=== PATIENT | male | born 1950 ===

== ENCOUNTER 2017-11-04 07:00 | Inpatient (IN) | payer MEDICARE ==
[2017-11-04] MEDS ORDERED: Phenylephrine 10 mg/ml Inj ONE ×3 (10:37→11:30)
[2017-11-04] MEDS ORDERED: Midazolam 2 MG/2 ML VIAL ONE (10:37)
[2017-11-04] MEDS ORDERED: Propofol 10 mg/ml Inj (20 ML) ONE (10:38)
[2017-11-04] MEDS ORDERED: Lactated Ringer's 1,000 ML IV ONE (10:40)
[2017-11-04] MEDS ORDERED: Succinylcholine Chloride 20 mg/ml Syr (5 ml) IV ONE (10:40)
[2017-11-04] MEDS ORDERED: cefTRIAXone IV 1 gm in Dextros 50 ML IVPB ONE (10:56)
[2017-11-04] MEDS: Gentamicin 80 mg in 0.9% NS 80 MG/100 ML BAG IVPB ONE ×2 (10:57→11:00)
--- NOTE | 2017-11-04 11:56 | PCM.SURG1 ---
Surgeon's Initial Post Op Note - Surgeon's Notes Surgeon: evgeny pizano Neon Molder: none Type of Anesthesia: General LMA Pre-Operative Diagnosis: bph Operative Findings: bph, retention Post-Operative Diagnosis: same Operation Performed: cysto, bilat ureteral stent removal. TURP Specimen/Specimens Removed: urine. prostate Estimated Blood Loss: EBL {In ML}: 100 Blood Products Given: N/A Post-Op Condition: Good Date of Surgery/Procedure: 11/04/17 Time of Surgery/Procedure: 11:56
[2017-11-04] MEDS ORDERED: Oxycodone/Acetaminophen 5/325 mg Tab PO PRN (11:57)
[2017-11-04] MEDS ORDERED: Potassium Ch 20mEq in D5-1/2NS 1,000 ML IV SCH (12:00)
[2017-11-04] MEDS: HYDROmorphone 0.5 mg/0.5 ml ISec IVP PRN ×3 (12:22→15:40)
[2017-11-04] MEDS ORDERED: HYDROmorphone 0.5 mg/0.5 ml ISec ONE (15:44)
[2017-11-04] MEDS ORDERED: Sodium Chloride 0.9% 1,000 ML IV ONE ×2 (16:24→17:15)
[2017-11-04 16:42] LABS: BASO % 0.5 % (0.0-2.0); EOS % 0.4 % (0.0-4.0); HEMATOCRIT 35.6 % (35.0-51.0); LYMPH # 0.4 K/uL (1.0-4.3); LYMPH % 8.6 % (20.0-40.0); MEAN CELL VOLUME 80.8 fL (80.0-94.0); MEAN CORPUSCULAR HEMOGLOBIN 26.2 pg (27.0-31.0); MEAN CORPUSCULAR HGB CONC 32.5 g/dL (33.0-37.0); MEAN PLATELET VOLUME 8.5 fL (7.2-11.7); MONO % 0.6 % (0.0-10.0); PLATELET COUNT 275 K/uL (130-400); RED CELL DISTRIBUTION WIDTH 15.8 % (11.5-14.5); WHITE BLOOD COUNT 5.2 K/uL (4.8-10.8)
[2017-11-04 16:54] LABS: INR 1.1
[2017-11-04 17:07] LABS: ALB/GLOB RATIO 1.1 (1.0-2.1); BILIRUBIN,TOTAL 0.5 mg/dL (0.2-1.3); CALCIUM 8.4 mg/dl (8.6-10.4); MAGNESIUM 1.3 mg/dL (1.6-2.3); PHOSPHOROUS 3.2 mg/dL (2.5-4.5); POTASSIUM 3.7 mmol/L (3.6-5.2); TOTAL PROTEIN 6.9 g/dL (6.3-8.3)
[2017-11-04 17:15] LABS: VENOUS BLOOD GAS BASE EXCESS -2.4 mmol/L (0.0-2.0); VENOUS BLOOD GAS PCO2 42 mmHg (40-60); VENOUS BLOOD PH 7.35 (7.32-7.43)
--- NOTE | 2017-11-04 17:21 | PCM.SEPTIC ---
Addendum entered and electronically signed by Celi Cardenas DO 11/04/17 17:24 : Code Sepsis called on this patient at 16:02 for tachycardia and fever. Patient s/p OR and is AAOx3, in no acute distress and states that he feels well. The following labs were ordered: ABG shock panel, CBC, CMP, blood culture, urine culture, UA and procalcitonin. Original Note: <Celi Cardenas - Last Filed: 11/04/17 17:19> Sepsis Progress Note - Reassessment Type Date of Evaluation: 11/04/17 Time of Evaluation: 16:02 Reassessment Type: Non-invasive reassessment - Non Invasive Reassessment Were the most recent vital sign reviewed: Yes Vital Sign (Latest): Temp Pulse Resp BP Pulse Ox 97 F L 74 10 L 140/94 H 99 11/04/17 12:35 11/04/17 14:30 11/04/17 14:30 11/04/17 14:30 11/04/17 14:30 Cardiovascular: Yes: Chest Non Tender, Tachycardia. No: Edema, JVD, Murmur, Bradycardia, Irregularly Irregular Respiratory: Yes: Normal Breath Sounds. No: Decreased Breath Sounds, Accessory Muscle Use, Crackles, Rales, Rhonchi, Stridor, Wheezing, Respiratory Distress Capillary Refill: Normal (Less than 2 sec) Pulses: Normal Dorsalis Pedis Skin: Normal Color, Warm, Dry <Monica May V - Last Filed: 11/05/17 07:30> Sepsis Progress Note - Non Invasive Reassessment Vital Sign (Latest): Temp Pulse Resp BP Pulse Ox 100.1 F H 89 20 115/73 98 11/05/17 06:45 11/05/17 04:06 11/05/17 04:06 11/05/17 04:06 11/05/17 04:06 Attending/Attestation - Attestation I have personally seen and examined this patient.: Yes I have fully participated in the care of the patient.: Yes I have reviewed all pertinent clinical information, including history, physical exam and plan: Yes Notes (Text): Late computer entry. Brief Hospitalist Note. Responded to Code sepsis called in the PACU. Patient s/p TURP for BPH. In the OR , patient had received Rocephin and gentamicin. Code sepsis called for fever: 102 and HR: 120s. Patient's lactate has not yet been sent. Blood work ordered. Patient I believe had urine samples drawn in OR so will not recollect urine/has fontanez/running on CBI in the PACU. patient is awake, alert, no acute distress, except for mild chills. Denies CP, Denies cough, denies abdominal pain. Reports he was not feeling well before OR today but didn't think too much of it. Denies diarrhea, denies cough, denies rhinnorhea. Patient denies prior medical hx except for BPH, though is on anti-hypertensive meds and denies allergies to medications. Patient's blood pressure is relatively normal. Denies hx of heart failure, renal problems nor liver problems Per code sepsis protocol. patient has already received 2 antibiotics today in OR. Infectious Disease: Dr. Duarte is consult note: private attending for this patient is Dr. Hebert Orozco, who is also on medical consult. Patient ordered for LR 30mg/kg which is approximately 2 Liters(180ml). patient has fontanez since status post Turp for BPH.. Patient placed on telemetry. Discussed with Katherine Lazaro RN Crime Scene Photographer who will coordinate for telemetry bed. Repeat lactate ordered for 3 hours later. Blood work: CBC, CMP, Procalcitonin, 2 blood cultures, and Chest xray ordered.
--- NOTE | 2017-11-04 17:43 | CP.PCM.CON ---
History of Present Illness - History of Present Illness History of Present Illness: hx BPH HTN admitted from OR s/p TURP with chills and sepsis IV rx in progress Review of Systems - Review of Systems All systems: reviewed and no additional remarkable complaints except - Constitutional Constitutional: As Per HPI, Anorexia, Fever, Malaise - EENT Eyes: absent: As Per HPI, Blind Spots, Blurred Vision, Change in Vision, Decreased Night Vision, Diplopia, Discharge, Dry Eye, Exophthalmos, Floaters, Irritation, Itchy Eyes, Loss of Peripheral Vision, Pain, Photophobia, Requires Corrective Lenses, Sees Flashes, Spots in Vision, Tunnel Vision, Other Visual Disturbances, Loss of Vision, Other Ears: absent: As Per HPI, Decreased Hearing, Ear Discharge, Ear Pain, Tinnitus, Abnormal Hearing, Disequilibrium, Dizziness, Other Nose/Mouth/Throat: absent: As Per HPI, Epistaxis, Nasal Congestion, Nasal Discharge, Nasal Obstruction, Nasal Trauma, Nose Pain, Post Nasal Drip, Sinus Pain, Sinus Pressure, Bleeding Gums, Change in Voice, Dental Pain, Dry Mouth, Dysphagia, Halitosis, Hoarsness, Lip Swelling, Mouth Lesions, Mouth Pain, Odynophagia, Sore Throat, Throat Swelling, Tongue Swelling, Facial Pain, Neck Pain, Neck Mass, Other - Cardiovascular Cardiovascular: absent: As Per HPI, Acrocyanosis, Chest Pain, Chest Pain at Rest , Chest Pain with Activity, Claudication, Diaphoresis, Dyspnea, Dyspnea on Exertion, Edema, Irregular Heart Rhythm, Pain Radiating to Arm/Neck/Jaw, Leg Edema, Leg Ulcers, Lightheadedness, Orthopnea, Palpitations, Paroxysmal Nocturnal Dyspnea, Pedal Edema, Radiating Pain, Rapid Heart Rate, Slow Heart Rate, Syncope, Other - Respiratory Respiratory: absent: As Per HPI, Cough, Dyspnea, Hemoptysis, Dyspnea on Exertion , Wheezing, Snoring, Stridor, Pain on Inspiration, Chest Congestion, Excessive Mucous Production, Change in Mucous Color, Pain with Coughing, Other - Gastrointestinal Gastrointestinal: absent: As Per HPI, Abdominal Pain, Belching, Bloating, Change in Bowel Habits, Change in Stool Character, Coffee Ground Emesis, Constipation, Cramping, Diarrhea, Dyspepsia, Dysphagia, Early Satiety, Excessive Flatus, Fecal Incontinence, Heartburn, Hematemesis, Hematochezia, Loose Stools, Melena, Nausea, Odynophagia, Temesmus, Vomiting, Other - Genitourinary Genitourinary: As Per HPI - Musculoskeletal Musculoskeletal: absent: As Per HPI, Abnormal Gait, Arthralgias, Atrophy, Back Pain, Deformity, Joint Swelling, Limited Range of Motion, Loss of Height, Muscle Cramps, Muscle Weakness, Myalgias, Neck Pain, Numbness, Radiating Pain into Limb, Stiffness, Tingling, Other - Integumentary Integumentary: absent: As Per HPI, Acne, Alopecia, Bleeding Lesions, Change in Hair, Change in Nails, Change in Pigmentation, Changing Lesions, Dry Skin, Erythema, Furuncle, Hirsutism, Lesions, New Lesions, Non-Healing Lesions, Photosensitivity, Pruritus, Rash, Skin Pain, Skin Ulcer, Sores, Striae, Swelling , Unusual Bruising, Wounds, Jaundice, Other - Neurological Neurological: absent: As Per HPI, Abnormal Gait, Abnormal Hearing, Abnormal Movements, Abnormal Speech, Behavioral Changes, Burning Sensations, Confusion, Convulsions, Disequilibrium, Dizziness, Numbness, Focal Weakness, Frequent Falls , Headaches, Lack of Coordination, Loss of Vision, Memory Loss, Paresthesias, Radicular Pain, Restless Legs, Sensory Deficit, Syncope, Tingling, Tremor, Vertigo, Weakness, Other Visual Disturbances, Other - Psychiatric Psychiatric: absent: As Per HPI, Abnormal Sleep Pattern, Anhedonia, Anxiety, Auditory Hallucinations, Behavioral Changes, Change in Appetite, Change in Libido, Confusion, Depression, Difficulty Concentrating, Hallucinations, Homicidal Ideation, Hopelessness, Irritability, Memory Loss, Mood Swings, Panic Attacks, Paranoia, Suicidal Ideation, Visual Hallucinations, Tactile Hallucinations, Other - Endocrine Endocrine: absent: As Per HPI, Change in Body Appearance, Change in Libido, Cold Intolorance, Deepening of Voice, Excessive Sweating, Fatigue, Flushing, Heat Intolorance, Increase in Ring/Shoe/Hat Size, Palpitations, Polydipsia, Polyphagia, Polyuria, Other - Hematologic/Lymphatic Hematologic: absent: As Per HPI, Easy Bleeding, Easy Bruising, Lymphadenopathy, Other Past Patient History - Past Medical History & Family History Past Medical History?: Yes - Past Social History Smoking Status: Former Smoker - CARDIAC Hx Hypercholesterolemia: Yes Hx Hypertension: Yes - PULMONARY Hx Respiratory Disorders: No - NEUROLOGICAL Hx Neurological Disorder: No - HEENT Hx HEENT Problems: Yes Hx Cataracts: Yes - RENAL Hx Chronic Kidney Disease: No - ENDOCRINE/METABOLIC Hx Endocrine Disorders: No - HEMATOLOGICAL/ONCOLOGICAL Hx Blood Disorders: Yes Hx Anemia: Yes - INTEGUMENTARY Hx Dermatological Problems: No - MUSCULOSKELETAL/RHEUMATOLOGICAL Hx Musculoskeletal Disorders: Yes Hx Falls: Yes Hx Unsteady Gait: Yes - GASTROINTESTINAL Hx Gastrointestinal Disorders: Yes - GENITOURINARY/GYNECOLOGICAL Hx Genitourinary Disorders: Yes Hx Prostate Problems: Yes - PSYCHIATRIC Hx Psychophysiologic Disorder: Yes Hx Anxiety: Yes - SURGICAL HISTORY Hx Surgeries: Yes Hx Herniorrhaphy: Yes (Kedar inguinal hernias) - ANESTHESIA Hx Anesthesia: Yes Hx Anesthesia Reactions: No Hx Malignant Hyperthermia: No Has any member of the family had a problem w/ anesthesia?: No Meds Allergies/Adverse Reactions: Allergies Allergy/AdvReac Type Severity Reaction Status Date / Time No Known Allergies Allergy Verified 11/02/17 09:01 - Medications Medications: Current Medications Acetaminophen (Tylenol 325mg Tab) 650 mg PO Q6 PRN PRN Reason: Fever >100.4 F Potassium Chloride/Dextrose/Sod Cl (Potassium Chl 20 Meq In D5-1/2ns) 1,000 mls @ 100 mls/hr IV .Q10H PRO Lactated Ringer's (Lactated Ringer's) 1,000 mls @ 100 mls/hr IV .Q10H PRO Oxycodone/Acetaminophen (Percocet 5/325 Mg Tab) 1 tab PO Q4H PRN PRN Reason: Pain, moderate (4-7) Stop: 11/07/17 11:58 Physical Exam - Constitutional Appears: Toxic - Head Exam Head Exam: NORMOCEPHALIC - Eye Exam Eye Exam: absent: Scleral icterus - ENT Exam ENT Exam: Mucous Membranes Dry, Normal External Ear Exam - Neck Exam Neck exam: Negative for: Lymphadenopathy - Respiratory Exam Respiratory Exam: Clear to Auscultation Bilateral - Cardiovascular Exam Cardiovascular Exam: Tachycardia, REGULAR RHYTHM, +S1, +S2 - GI/Abdominal Exam GI & Abdominal Exam: Diminished Bowel Sounds - Rectal Exam Rectal Exam: Deferred - Exam Exam: absent: NORMAL INSPECTION - Extremities Exam Extremities exam: Negative for: pedal edema - Back Exam Back exam: absent: CVA tenderness (L), CVA tenderness (R) - Neurological Exam Neurological exam: Alert, CN II-XII Intact, Oriented x3, Reflexes Normal - Psychiatric Exam Psychiatric exam: Depressed - Skin Skin Exam: Dry Results - Vital Signs Recent Vital Signs: Last Vital Signs Temp 101.8 F H 11/04/17 15:45 Pulse 136 H 11/04/17 15:45 Resp 21 11/04/17 15:45 BP 154/91 H 11/04/17 15:45 Pulse Ox 99 11/04/17 15:45 - Labs Result Diagrams: 11/05/17 07:14 11/05/17 07:14 Labs: Laboratory Results - last 24 hr 11/04/17 11/04/17 11/04/17 16:35 16:39 16:39 WBC 5.2 RBC 4.40 Hgb 11.6 L Hct 35.6 MCV 80.8 MCH 26.2 L MCHC 32.5 L RDW 15.8 H Plt Count 275 MPV 8.5 Neut % (Auto) 89.9 H Lymph % (Auto) 8.6 L [place] % (Auto) 0.6 Eos % (Auto) 0.4 Baso % (Auto) 0.5 Neut # 4.6 Lymph # 0.4 L [place] # 0.0 Eos # 0.0 Baso # 0.0 PT 12.1 INR 1.1 APTT 28 pO2 VBG pH VBG pCO2 VBG HCO3 VBG Total CO2 VBG O2 Sat (Calc) VBG Base Excess VBG Potassium Glucose Lactate Sodium Potassium Chloride Carbon Dioxide Anion Gap BUN Creatinine Est GFR ( Amer) Est GFR (Non-Af Amer) Random Glucose Lactic Acid 2.4 H Calcium Phosphorus Magnesium Total Bilirubin AST ALT Alkaline Phosphatase Total Protein Albumin Globulin Albumin/Globulin Ratio Venous Blood Potassium 11/04/17 11/04/17 16:39 17:12 WBC RBC Hgb Hct MCV MCH MCHC RDW Plt Count MPV Neut % (Auto) Lymph % (Auto) [place] % (Auto) Eos % (Auto) Baso % (Auto) Neut # Lymph # [place] # Eos # Baso # PT INR APTT pO2 32 VBG pH 7.35 VBG pCO2 42 VBG HCO3 22.0 VBG Total CO2 24.5 VBG O2 Sat (Calc) 67.2 H VBG Base Excess -2.4 L VBG Potassium 4.8 Glucose 335 H Lactate 1.3 Sodium 137 134.0 Potassium 3.7 Chloride 103 107.0 Carbon Dioxide 25 Anion Gap 12 BUN 20 Creatinine 1.7 H Est GFR ( Amer) 49 Est GFR (Non-Af Amer) 40 Random Glucose 103 Lactic Acid Calcium 8.4 L Phosphorus 3.2 Magnesium 1.3 L Total Bilirubin 0.5 AST 25 ALT 44 Alkaline Phosphatase 98 Total Protein 6.9 Albumin 3.6 Globulin 3.3 Albumin/Globulin Ratio 1.1 Venous Blood Potassium 4.8 Assessment & Plan - Assessment and Plan (Free Text) Assessment: sepsis s/p TURP suspect gram neg cont IV rx follow up ICU eval
[2017-11-04] MEDS ORDERED: Cefepime IV 1 gm in Dextrose 1 GM/50 ML BAG IVPB STA (17:44)
[2017-11-04] MEDS ORDERED: Cefepime IV 2 gm in Dextrose 2 GM/100 ML BAG IVPB SCH (17:45)
--- NOTE | 2017-11-04 18:28 | RAD ---
HISTORY: Sepsis Patient COMPARISON: None available. TECHNIQUE: Chest, one view. FINDINGS: LUNGS: Hyperinflation may be seen in the setting of COPD.No focal consolidation. Please note that chest x-ray has limited sensitivity for the detection of pulmonary masses. PLEURA: No significant pleural effusion identified. No definite pneumothorax . CARDIOVASCULAR: Heart size appears within normal limits. Aortic ectasia. OSSEOUS STRUCTURES: Degenerative changes. VISUALIZED UPPER ABDOMEN: Unremarkable. OTHER FINDINGS: None. IMPRESSION: Hyperinflation may be seen in the setting of COPD. Ectatic aorta.
[2017-11-04 18:51] LABS: NEUTROPHIL 77 % (50-75); TOTAL CELLS COUNTED 100
[2017-11-04] MEDS: Cefepime IV 1 gm in Dextrose 1 GM/50 ML BAG IVPB SCH (19:00)
[2017-11-04 19:32] LABS: DRAW SITE VENOUS
[2017-11-04] MEDS: Magnesium Sulfate 1 gm in D5W 1 GM/100 ML BAG IVPB SCH ×2 (20:54→20:56)
--- NOTE | 2017-11-04 23:25 | CP.PCM.HP ---
History of Present Illness - History of Present Illness History of Present Illness: CC:fever, fever 67 year old male with hx BPH HTN admitted from OR s/p TURP with chills and sepsis IV rx in progress Present on Admission - Present on Admission Any Indicators Present on Admission: Yes Past Patient History - Past Medical History & Family History Past Medical History?: Yes - Past Social History Smoking Status: Former Smoker - CARDIAC Hx Hypercholesterolemia: Yes Hx Hypertension: Yes - PULMONARY Hx Respiratory Disorders: No - NEUROLOGICAL Hx Neurological Disorder: No - HEENT Hx HEENT Problems: Yes Hx Cataracts: Yes - RENAL Hx Chronic Kidney Disease: No - ENDOCRINE/METABOLIC Hx Endocrine Disorders: No - HEMATOLOGICAL/ONCOLOGICAL Hx Blood Disorders: Yes Hx Anemia: Yes - INTEGUMENTARY Hx Dermatological Problems: No - MUSCULOSKELETAL/RHEUMATOLOGICAL Hx Musculoskeletal Disorders: Yes Hx Falls: Yes Hx Unsteady Gait: Yes - GASTROINTESTINAL Hx Gastrointestinal Disorders: Yes - GENITOURINARY/GYNECOLOGICAL Hx Genitourinary Disorders: Yes Hx Prostate Problems: Yes - PSYCHIATRIC Hx Psychophysiologic Disorder: Yes Hx Anxiety: Yes - SURGICAL HISTORY Hx Surgeries: Yes Hx Herniorrhaphy: Yes (Kedar inguinal hernias) - ANESTHESIA Hx Anesthesia: Yes Hx Anesthesia Reactions: No Hx Malignant Hyperthermia: No Has any member of the family had a problem w/ anesthesia?: No Meds Allergies/Adverse Reactions: Allergies Allergy/AdvReac Type Severity Reaction Status Date / Time No Known Allergies Allergy Verified 11/02/17 09:01 Results - Vital Signs Recent Vital Signs: Last Vital Signs Temp 101.1 F H 11/04/17 18:15 Pulse 102 H 11/04/17 20:00 Resp 11 L 11/04/17 18:15 BP 126/88 11/04/17 18:15 Pulse Ox 98 11/04/17 18:15 - Labs Result Diagrams: 11/06/17 07:51 11/06/17 07:51 Labs: Laboratory Results - last 24 hr 11/04/17 11/04/17 11/04/17 16:35 16:39 16:39 WBC 5.2 RBC 4.40 Hgb 11.6 L Hct 35.6 MCV 80.8 MCH 26.2 L MCHC 32.5 L RDW 15.8 H Plt Count 275 MPV 8.5 Neut % (Auto) 89.9 H Lymph % (Auto) 8.6 L [place] % (Auto) 0.6 Eos % (Auto) 0.4 Baso % (Auto) 0.5 Neut # 4.6 Lymph # 0.4 L [place] # 0.0 Eos # 0.0 Baso # 0.0 Neutrophils % (Manual) 77 H Band Neutrophils % 16 H* Lymphocytes % (Manual) 6 L Monocytes % (Manual) 1 Platelet Estimate Normal Hypochromasia (manual) Slight Microcytosis (manual) Slight Tear Drop Cells Slight Ovalocytes Slight Fabby Cells Slight PT 12.1 INR 1.1 APTT 28 Puncture Site pCO2 pO2 HCO3 ABG pH ABG Total CO2 ABG O2 Saturation ABG Base Excess Bran Test ABG Potassium VBG pH VBG pCO2 VBG HCO3 VBG Total CO2 VBG O2 Sat (Calc) VBG Base Excess VBG Potassium Glucose Lactate Sodium Potassium Chloride Carbon Dioxide Anion Gap BUN Creatinine Est GFR ( Amer) Est GFR (Non-Af Amer) Random Glucose Lactic Acid 2.4 H Calcium Phosphorus Magnesium Total Bilirubin AST ALT Alkaline Phosphatase Total Protein Albumin Globulin Albumin/Globulin Ratio Procalcitonin Arterial Blood Potassium Venous Blood Potassium 11/04/17 11/04/17 11/04/17 16:39 16:39 17:12 WBC RBC Hgb Hct MCV MCH MCHC RDW Plt Count MPV Neut % (Auto) Lymph % (Auto) [place] % (Auto) Eos % (Auto) Baso % (Auto) Neut # Lymph # Cooper # Eos # Baso # Neutrophils % (Manual) Band Neutrophils % Lymphocytes % (Manual) Monocytes % (Manual) Platelet Estimate Hypochromasia (manual) Microcytosis (manual) Tear Drop Cells Ovalocytes Fabby Cells PT INR APTT Puncture Site pCO2 pO2 32 HCO3 ABG pH ABG Total CO2 ABG O2 Saturation ABG Base Excess Bran Test ABG Potassium VBG pH 7.35 VBG pCO2 42 VBG HCO3 22.0 VBG Total CO2 24.5 VBG O2 Sat (Calc) 67.2 H VBG Base Excess -2.4 L VBG Potassium 4.8 Glucose 335 H Lactate 1.3 Sodium 137 134.0 Potassium 3.7 Chloride 103 107.0 Carbon Dioxide 25 Anion Gap 12 BUN 20 Creatinine 1.7 H Est GFR ( Amer) 49 Est GFR (Non-Af Amer) 40 Random Glucose 103 Lactic Acid Calcium 8.4 L Phosphorus 3.2 Magnesium 1.3 L Total Bilirubin 0.5 AST 25 ALT 44 Alkaline Phosphatase 98 Total Protein 6.9 Albumin 3.6 Globulin 3.3 Albumin/Globulin Ratio 1.1 Procalcitonin 0.15 L Arterial Blood Potassium Venous Blood Potassium 4.8 11/04/17 11/04/17 19:29 19:57 WBC RBC Hgb Hct MCV MCH MCHC RDW Plt Count MPV Neut % (Auto) Lymph % (Auto) [place] % (Auto) Eos % (Auto) Baso % (Auto) Neut # Lymph # Cooper # Eos # Baso # Neutrophils % (Manual) Band Neutrophils % Lymphocytes % (Manual) Monocytes % (Manual) Platelet Estimate Hypochromasia (manual) Microcytosis (manual) Tear Drop Cells Ovalocytes Fabby Cells PT INR APTT Puncture Site Venous pCO2 32 L pO2 69 L HCO3 23.6 ABG pH 7.44 ABG Total CO2 22.7 ABG O2 Saturation 97.6 ABG Base Excess -1.6 Bran Test Na ABG Potassium 3.5 L VBG pH VBG pCO2 VBG HCO3 VBG Total CO2 VBG O2 Sat (Calc) VBG Base Excess VBG Potassium Glucose 133 H Lactate 1.6 Sodium 135.0 Potassium Chloride 108.0 H Carbon Dioxide Anion Gap BUN Creatinine Est GFR ( Amer) Est GFR (Non-Af Amer) Random Glucose Lactic Acid 1.7 Calcium Phosphorus Magnesium Total Bilirubin AST ALT Alkaline Phosphatase Total Protein Albumin Globulin Albumin/Globulin Ratio Procalcitonin Arterial Blood Potassium 3.5 L Venous Blood Potassium Assessment & Plan (1) BPH (benign prostatic hyperplasia) Status: Acute (2) Postoperative fever Status: Acute (3) S/P TURP Status: Acute (4) UTI (urinary tract infection) due to Enterococcus Status: Acute
[2017-11-05] MEDS: Lactated Ringer's 1,000 ML IV SCH ×4 (03:54→22:38)
[2017-11-05] MEDS: Cefepime IV 1 gm in Dextrose 1 GM/50 ML BAG IVPB SCH (05:53)
[2017-11-05 07:45] LABS: HEMATOCRIT 34.2 % (35.0-51.0); MEAN CELL VOLUME 81.7 fL (80.0-94.0); MEAN CORPUSCULAR HEMOGLOBIN 26.4 pg (27.0-31.0); MEAN CORPUSCULAR HGB CONC 32.4 g/dL (33.0-37.0); RED CELL DISTRIBUTION WIDTH 15.5 % (11.5-14.5)
[2017-11-05 07:50] LABS: WHITE BLOOD COUNT 16.2 K/uL (4.8-10.8)
[2017-11-05 08:02] LABS: CALCIUM 8.1 mg/dl (8.6-10.4); POTASSIUM 4.3 mmol/L (3.6-5.2)
[2017-11-05] MEDS ORDERED: Magnesium Sulfate 1 gm in D5W 1 GM/100 ML BAG IVPB ONE (08:30)
--- NOTE | 2017-11-05 08:41 | RAD ---
HISTORY: fever, rales COMPARISON: 11/04/2017 at 1652 hour FINDINGS: LUNGS: No consolidation. Hyperinflation -COPD inferred-similar Unfolded/ectatic at ascending and descending thoracic aorta -similar PLEURA: No significant pleural effusion identified, no pneumothorax apparent. Minimal biapical pleural thickening. CARDIOVASCULAR: Normal. OSSEOUS STRUCTURES: No significant abnormalities. VISUALIZED UPPER ABDOMEN: Normal. OTHER FINDINGS: None. IMPRESSION: No infiltrate or atelectasis. COPD
--- NOTE | 2017-11-05 09:28 | PCM.RRT ---
HOSPITAL CNA Nurses Assessment - Situation Date: 11/05/17 Time HOSPITAL CNA was called: 08:06 - Constitutional Appears: Toxic - Head Head Exam: ATRAUMATIC, NORMAL INSPECTION - Eyes Eye Exam: EOMI, Normal appearance - Respiratory Exam Respiratory Exam: Rales. absent: Rhonchi, Wheezes, Respiratory Distress - Cardiovascular Exam Cardiovascular Exam: REGULAR RHYTHM, +S1, +S2 - GI/Abdominal Exam GI & Abdominal Exam: Soft, Normal Bowel Sounds. absent: Distended, Firm, Tenderness - Neurological Exam Neurological Exam: Alert, Awake, Oriented x3 - Extremities Exam Extremities Exam: Normal Inspection. absent: Tenderness Plan - Assessment of Findings&Treatment Plan Code Sepsis was called for this patient at 8:06am.
[2017-11-05 09:59] LABS: MAGNESIUM 1.8 mg/dL (1.6-2.3)
[2017-11-05] MEDS ORDERED: Pneumococcal 23-Valent Vaccine IM ONE (10:00)
[2017-11-05] MEDS: Meropenem 500 MG in Sodium Chloride 0.9% 100 ML IVPB SCH ×2 (10:20→18:21)
[2017-11-05 12:18] LABS: VENOUS BLOOD GAS BASE EXCESS -2.9 mmol/L (0.0-2.0); VENOUS BLOOD GAS PCO2 41 mmHg (40-60); VENOUS BLOOD PH 7.35 (7.32-7.43)
--- NOTE | 2017-11-05 12:25 | PCM.URO ---
Urology Progress Note - Subjective Hematuria: Yes (post op) - Objective Lab Studies: Reviewed (post op day #1 maintain fontanez full note to be dictated) Lab Results Last 24 Hours: Laboratory Results - last 24 hr 11/04/17 11/04/17 11/04/17 16:35 16:39 16:39 WBC 5.2 RBC 4.40 Hgb 11.6 L Hct 35.6 MCV 80.8 MCH 26.2 L MCHC 32.5 L RDW 15.8 H Plt Count 275 MPV 8.5 Neut % (Auto) 89.9 H Lymph % (Auto) 8.6 L [place] % (Auto) 0.6 Eos % (Auto) 0.4 Baso % (Auto) 0.5 Neut # 4.6 Lymph # 0.4 L [place] # 0.0 Eos # 0.0 Baso # 0.0 Neutrophils % (Manual) 77 H Band Neutrophils % 16 H* Lymphocytes % (Manual) 6 L Monocytes % (Manual) 1 Platelet Estimate Normal Hypochromasia (manual) Slight Microcytosis (manual) Slight Tear Drop Cells Slight Ovalocytes Slight Fabby Cells Slight PT 12.1 INR 1.1 APTT 28 Puncture Site pCO2 pO2 HCO3 ABG pH ABG Total CO2 ABG O2 Saturation ABG Base Excess Bran Test ABG Potassium VBG pH VBG pCO2 VBG HCO3 VBG Total CO2 VBG O2 Sat (Calc) VBG Base Excess VBG Potassium Glucose Lactate Sodium Potassium Chloride Carbon Dioxide Anion Gap BUN Creatinine Est GFR ( Amer) Est GFR (Non-Af Amer) Random Glucose Lactic Acid 2.4 H Calcium Phosphorus Magnesium Total Bilirubin AST ALT Alkaline Phosphatase Total Protein Albumin Globulin Albumin/Globulin Ratio Procalcitonin Arterial Blood Potassium Venous Blood Potassium 11/04/17 11/04/17 11/04/17 16:39 16:39 17:12 WBC RBC Hgb Hct MCV MCH MCHC RDW Plt Count MPV Neut % (Auto) Lymph % (Auto) [place] % (Auto) Eos % (Auto) Baso % (Auto) Neut # Lymph # [place] # Eos # Baso # Neutrophils % (Manual) Band Neutrophils % Lymphocytes % (Manual) Monocytes % (Manual) Platelet Estimate Hypochromasia (manual) Microcytosis (manual) Tear Drop Cells Ovalocytes Burns Cells PT INR APTT Puncture Site pCO2 pO2 32 HCO3 ABG pH ABG Total CO2 ABG O2 Saturation ABG Base Excess Bran Test ABG Potassium VBG pH 7.35 VBG pCO2 42 VBG HCO3 22.0 VBG Total CO2 24.5 VBG O2 Sat (Calc) 67.2 H VBG Base Excess -2.4 L VBG Potassium 4.8 Glucose 335 H Lactate 1.3 Sodium 137 134.0 Potassium 3.7 Chloride 103 107.0 Carbon Dioxide 25 Anion Gap 12 BUN 20 Creatinine 1.7 H Est GFR ( Amer) 49 Est GFR (Non-Af Amer) 40 Random Glucose 103 Lactic Acid Calcium 8.4 L Phosphorus 3.2 Magnesium 1.3 L Total Bilirubin 0.5 AST 25 ALT 44 Alkaline Phosphatase 98 Total Protein 6.9 Albumin 3.6 Globulin 3.3 Albumin/Globulin Ratio 1.1 Procalcitonin 0.15 L Arterial Blood Potassium Venous Blood Potassium 4.8 11/04/17 11/04/17 11/05/17 19:29 19:57 07:14 WBC 16.2 H D RBC 4.18 L Hgb 11.1 L Hct 34.2 L MCV 81.7 MCH 26.4 L MCHC 32.4 L RDW 15.5 H Plt Count 219 MPV 9.0 Neut % (Auto) Lymph % (Auto) [place] % (Auto) Eos % (Auto) Baso % (Auto) Neut # Lymph # [place] # Eos # Baso # Neutrophils % (Manual) Band Neutrophils % Lymphocytes % (Manual) Monocytes % (Manual) Platelet Estimate Hypochromasia (manual) Microcytosis (manual) Tear Drop Cells Ovalocytes Burns Cells PT INR APTT Puncture Site Venous pCO2 32 L pO2 69 L HCO3 23.6 ABG pH 7.44 ABG Total CO2 22.7 ABG O2 Saturation 97.6 ABG Base Excess -1.6 Bran Test Na ABG Potassium 3.5 L VBG pH VBG pCO2 VBG HCO3 VBG Total CO2 VBG O2 Sat (Calc) VBG Base Excess VBG Potassium Glucose 133 H Lactate 1.6 Sodium 135.0 Potassium Chloride 108.0 H Carbon Dioxide Anion Gap BUN Creatinine Est GFR ( Amer) Est GFR (Non-Af Amer) Random Glucose Lactic Acid 1.7 Calcium Phosphorus Magnesium Total Bilirubin AST ALT Alkaline Phosphatase Total Protein Albumin Globulin Albumin/Globulin Ratio Procalcitonin Arterial Blood Potassium 3.5 L Venous Blood Potassium 11/05/17 11/05/17 11/05/17 07:14 08:32 12:14 WBC RBC Hgb Hct MCV MCH MCHC RDW Plt Count MPV Neut % (Auto) Lymph % (Auto) [place] % (Auto) Eos % (Auto) Baso % (Auto) Neut # Lymph # [place] # Eos # Baso # Neutrophils % (Manual) Band Neutrophils % Lymphocytes % (Manual) Monocytes % (Manual) Platelet Estimate Hypochromasia (manual) Microcytosis (manual) Tear Drop Cells Ovalocytes Burns Cells PT INR APTT Puncture Site pCO2 pO2 19 L HCO3 ABG pH ABG Total CO2 ABG O2 Saturation ABG Base Excess Bran Test ABG Potassium VBG pH 7.35 VBG pCO2 41 VBG HCO3 20.7 VBG Total CO2 23.9 VBG O2 Sat (Calc) 29.3 L VBG Base Excess -2.9 L VBG Potassium 4.3 Glucose 108 Lactate 2.2 H Sodium 137 136.0 Potassium 4.3 Chloride 107 110.0 H Carbon Dioxide 21 L Anion Gap 13 BUN 16 Creatinine 1.6 H Est GFR ( Amer) 52 Est GFR (Non-Af Amer) 43 Random Glucose 101 Lactic Acid 3.7 H Calcium 8.1 L Phosphorus Magnesium 1.8 Total Bilirubin AST ALT Alkaline Phosphatase Total Protein Albumin Globulin Albumin/Globulin Ratio Procalcitonin Arterial Blood Potassium Venous Blood Potassium 4.3 Intake & Output: Intake & Output 11/04/17 11/05/17 11/05/17 18:59 06:59 18:59 Intake Total 6600 Output Total 950 8050 Balance -950 -1450 Intake: Intake, IV Amount 400 Left Wrist 400 Oral 300 Other 5900 Output: Urine 950 8050 3-way Urethral 1800 Other: Voiding Method Toilet 3-way Fontanez with CBI Vital Signs: Vital Signs - 24 hr 11/04/17 11/04/17 11/04/17 12:35 12:50 13:05 Temperature 97 F L Pulse Rate 76 77 83 Pulse Rate [ Bilateral Radial] Respiratory 9 L 10 L 13 Rate Blood Pressure 137/90 134/89 136/88 O2 Sat by Pulse 100 100 100 Oximetry 11/04/17 11/04/17 11/04/17 13:20 13:35 14:00 Temperature Pulse Rate 85 84 78 Pulse Rate [ Bilateral Radial] Respiratory 12 11 L 9 L Rate Blood Pressure 124/94 H 141/94 H 142/93 H O2 Sat by Pulse 100 99 98 Oximetry 11/04/17 11/04/17 11/04/17 14:30 14:45 15:15 Temperature 101 F H Pulse Rate 74 98 H 120 H Pulse Rate [ Bilateral Radial] Respiratory 10 L 14 16 Rate Blood Pressure 140/94 H 137/101 H 139/90 O2 Sat by Pulse 99 99 99 Oximetry 11/04/17 11/04/17 11/04/17 15:45 16:00 16:15 Temperature 101.8 F H 103 F H Pulse Rate 136 H 137 H 128 H Pulse Rate [ Bilateral Radial] Respiratory 21 19 15 Rate Blood Pressure 154/91 H 130/86 134/97 H O2 Sat by Pulse 99 100 100 Oximetry 11/04/17 11/04/17 11/04/17 16:45 17:00 17:30 Temperature 102.4 F H 101.8 F H Pulse Rate 119 H 119 H 107 H Pulse Rate [ Bilateral Radial] Respiratory 13 12 14 Rate Blood Pressure 143/92 H 140/98 H 134/91 H O2 Sat by Pulse 98 100 99 Oximetry 11/04/17 11/04/17 11/04/17 18:00 18:15 19:00 Temperature 101.1 F H 98.1 F Pulse Rate 97 H 99 H 102 H Pulse Rate [ Bilateral Radial] Respiratory 12 11 L 20 Rate Blood Pressure 126/88 126/88 139/89 O2 Sat by Pulse 100 98 97 Oximetry 11/04/17 11/04/17 11/04/17 20:00 23:46 23:50 Temperature 98.2 F Pulse Rate 102 H 90 94 H Pulse Rate [ 102 H Bilateral Radial] Respiratory 20 Rate Blood Pressure 102/69 O2 Sat by Pulse 98 Oximetry 11/05/17 11/05/17 11/05/17 04:05 04:06 06:45 Temperature 97.7 F 100.1 F H Pulse Rate 88 89 Pulse Rate [ Bilateral Radial] Respiratory 20 Rate Blood Pressure 115/73 O2 Sat by Pulse 98 Oximetry 11/05/17 11/05/17 11/05/17 08:04 08:06 08:23 Temperature 101.8 F H 101.8 F H 101.8 F H Pulse Rate 133 H Pulse Rate [ Bilateral Radial] Respiratory 22 Rate Blood Pressure 170/105 H O2 Sat by Pulse 95 Oximetry 11/05/17 11/05/1711/05/17 08:25 09:25 10:40 Temperature 103.2 F H 102.2 F H 101.8 F H Pulse Rate 120 H 120 H 121 H Pulse Rate [ Bilateral Radial] Respiratory 22 20 20 Rate Blood Pressure 160/99 H 130/79 122/76 O2 Sat by Pulse 97 96 98 Oximetry
--- NOTE | 2017-11-05 15:54 | CP.PCM.PN ---
Subjective - Date & Time of Evaluation Date of Evaluation: 11/05/17 Time of Evaluation: 15:44 - Subjective Subjective: PT DISCUSSED WITH PRIMARY RN SABRINA THROUGHOUT THE DAY. PT HAS BEEN FEBRILE; WBC 16; TACHY; SBP IN THE 120'S-150'S. PT IS POST-BPH. DR. WHITLEY ON CONSULT FOR MEDICAL (DR. WHITLEY IS PT'S PMD). PT SEEN BY ME SEVERAL TIMES TODAY. AAO3, RESP EASY AND UNLABORED, BREATH SOUNDS CLEAR B/L; REG RHYTHM, NO MURMURS; ABD SOFT, ND, NT. PT IS AWARE OF THE TREATMENT PLAN AND THAT HE IS SEPTIC. AM LABS ORDERED FOR TOMORROW. WILL CONTINUE IVFS, IV ABX, TYLENOL PRN, CLOSE MONITORING PT'S VITALS. NOTIFIED DR. WHITLEY OF PT PRESENTATION. HE WILL SEE PT DURING EVENING ROUNDS. PT VERBALIZES UNDERSTANDING OF PLAN FOR TREATMENT AND MANAGEMENT. NO FURTHER ORDERS. Objective - Vital Signs/Intake and Output Vital Signs (last 24 hours): Temp Pulse Resp BP Pulse Ox 97.3 F L 93 H 20 101/65 99 11/05/17 15:23 11/05/17 15:23 11/05/17 15:23 11/05/17 15:23 11/05/17 15:23 Intake and Output: 11/05/17 11/05/17 06:59 18:59 Intake Total 6600 Output Total 8050 Balance -1450 - Medications Medications: Current Medications Acetaminophen (Tylenol 325mg Tab) 650 mg PO Q6 PRN PRN Reason: Fever >100.4 F Last Admin: 11/05/17 08:04 Dose: 650 mg Amlodipine Besylate (Norvasc) 5 mg PO DAILY [facility] Last Admin: 11/05/17 10:48 Dose: 5 mg Clonazepam (Klonopin) 0.5 mg PO BID [facility] Last Admin: 11/05/17 10:47 Dose: 0.5 mg Clonidine HCl (Catapres) 0.1 mg PO HS [facility] Finasteride (Proscar) 5 mg PO DAILY [facility] Last Admin: 11/05/17 10:47 Dose: 5 mg Hydroxyzine HCl (Atarax) 25 mg PO DAILY [facility] Last Admin: 11/05/17 10:47 Dose: 25 mg Potassium Chloride/Dextrose/Sod Cl (Potassium Chl 20 Meq In D5-1/2ns) 1,000 mls @ 100 mls/hr IV .Q10H [facility] Last Admin: 11/04/17 17:30 Dose: 100 mls Lactated Ringer's (Lactated Ringer's) 1,000 mls @ 100 mls/hr IV .Q10H [facility] Last Admin: 11/05/17 13:46 Dose: Not Given Meropenem 500 mg/ Sodium (Chloride) 100 mls @ 100 mls/hr IVPB Q8H [facility] Last Admin: 11/05/17 10:20 Dose: 100 mls/hr Oxycodone/Acetaminophen (Percocet 5/325 Mg Tab) 1 tab PO Q4H PRN PRN Reason: Pain, moderate (4-7) Stop: 11/07/17 11:58 Last Admin: 11/05/17 02:22 Dose: 1 tab - Labs Labs: 11/05/17 07:14 11/05/17 07:14 PT 12.1 SECONDS (9.7-12.2) 11/04/17 16:39 INR 1.1 11/04/17 16:39 APTT 28 SECONDS (21-34) 11/04/17 16:39
--- NOTE | 2017-11-05 18:35 | CP.PCM.PN ---
Subjective - Date & Time of Evaluation Date of Evaluation: 11/05/17 Time of Evaluation: 09:00 - Subjective Subjective: s/p code sepsis lactate level coming down Objective - Vital Signs/Intake and Output Vital Signs (last 24 hours): Temp Pulse Resp BP Pulse Ox 97.3 F L 93 H 20 101/65 99 11/05/17 15:23 11/05/17 15:23 11/05/17 15:23 11/05/17 15:23 11/05/17 15:23 Intake and Output: 11/05/17 11/05/17 06:59 18:59 Intake Total 6600 56098 Output Total 8050 67458 Balance -1450 -4200 - Medications Medications: Current Medications Acetaminophen (Tylenol 325mg Tab) 650 mg PO Q6 PRN PRN Reason: Fever >100.4 F Last Admin: 11/05/17 08:04 Dose: 650 mg Amlodipine Besylate (Norvasc) 5 mg PO DAILY [facility] Last Admin: 11/05/17 10:48 Dose: 5 mg Clonazepam (Klonopin) 0.5 mg PO BID [facility] Last Admin: 11/05/17 18:21 Dose: 0.5 mg Clonidine HCl (Catapres) 0.1 mg PO HS [facility] Docusate Sodium (Colace) 100 mg PO TID [facility] Finasteride (Proscar) 5 mg PO DAILY [facility] Last Admin: 11/05/17 10:47 Dose: 5 mg Hydroxyzine HCl (Atarax) 25 mg PO DAILY [facility] Last Admin: 11/05/17 10:47 Dose: 25 mg Potassium Chloride/Dextrose/Sod Cl (Potassium Chl 20 Meq In D5-1/2ns) 1,000 mls @ 100 mls/hr IV .Q10H [facility] Last Admin: 11/04/17 17:30 Dose: 100 mls Lactated Ringer's (Lactated Ringer's) 1,000 mls @ 100 mls/hr IV .Q10H [facility] Last Admin: 11/05/17 18:23 Dose: 100 mls/hr Meropenem 500 mg/ Sodium (Chloride) 100 mls @ 100 mls/hr IVPB Q8H [facility] Last Admin: 11/05/17 18:21 Dose: 100 mls/hr Oxycodone/Acetaminophen (Percocet 5/325 Mg Tab) 1 tab PO Q4H PRN PRN Reason: Pain, moderate (4-7) Stop: 11/07/17 11:58 Last Admin: 11/05/17 02:22 Dose: 1 tab - Labs Labs: 11/05/17 07:14 11/05/17 07:14 PT 12.1 SECONDS (9.7-12.2) 11/04/17 16:39 INR 1.1 11/04/17 16:39 APTT 28 SECONDS (21-34) 11/04/17 16:39 - Constitutional Appears: Toxic - Head Exam Head Exam: NORMOCEPHALIC - Eye Exam Eye Exam: absent: Scleral icterus - ENT Exam ENT Exam: Mucous Membranes Dry - Neck Exam Neck Exam: absent: Lymphadenopathy - Respiratory Exam Respiratory Exam: Decreased Breath Sounds - Cardiovascular Exam Cardiovascular Exam: REGULAR RHYTHM - GI/Abdominal Exam GI & Abdominal Exam: Distended, Soft - Rectal Exam Rectal Exam: Deferred - Exam Exam: NORMAL INSPECTION - Extremities Exam Extremities Exam: absent: Pedal Edema - Back Exam Back Exam: absent: CVA tenderness (L), CVA tenderness (R) Assessment and Plan - Assessment and Plan (Free Text) Plan: cont rx sepsis add merrem
--- NOTE | 2017-11-05 18:56 | PCM.SEPTIC ---
Sepsis Progress Note - Reassessment Type Date of Evaluation: 11/05/17 Time of Evaluation: 08:06 Reassessment Type: Non-invasive reassessment - Non Invasive Reassessment Were the most recent vital sign reviewed: Yes Vital Sign (Latest): Temp Pulse Resp BP Pulse Ox 97.5 F L 97 H 18 144/82 97 11/05/17 18:50 11/05/17 18:15 11/05/17 18:15 11/05/17 18:15 11/05/17 18:15 Cardiovascular: Yes: Tachycardia. No: Chest Non Tender, Edema, Irregularly Irregular Respiratory: Yes: Crackles, Rales. No: Stridor, Wheezing Capillary Refill: Normal (Less than 2 sec) Pulses: Normal Posterior Tibialis Skin: Warm, Diaphoretic, Pale
[2017-11-05 21:52] VITALS: RESP 20
--- NOTE | 2017-11-05 23:47 | CP.PCM.PN ---
Subjective - Date & Time of Evaluation Date of Evaluation: 11/05/17 Time of Evaluation: 09:15 - Subjective Subjective: Pt seen and evaluated,post op fever UTI, w fever, rigors. Improved this PM. P : antibiotic rx as per TANYA hi. urine culture - gram negative rods, further identification and sensitivity are pending. Dumont cath to straight drainage. OOB, ambulation Objective - Vital Signs/Intake and Output Vital Signs (last 24 hours): Temp Pulse Resp BP Pulse Ox 97.8 F 89 20 102/66 99 11/05/17 21:50 11/05/17 21:50 11/05/17 21:50 11/05/17 21:50 11/05/17 21:50 Intake and Output: 11/05/17 11/06/17 18:59 06:59 Intake Total 90316 Output Total 16861 900 Balance -4200 -900 - Medications Medications: Current Medications Acetaminophen (Tylenol 325mg Tab) 650 mg PO Q6 PRN PRN Reason: Fever >100.4 F Last Admin: 11/05/17 08:04 Dose: 650 mg Amlodipine Besylate (Norvasc) 5 mg PO DAILY [facility] Last Admin: 11/05/17 10:48 Dose: 5 mg Clonazepam (Klonopin) 0.5 mg PO BID [facility] Last Admin: 11/05/17 18:21 Dose: 0.5 mg Clonidine HCl (Catapres) 0.1 mg PO HS [facility] Last Admin: 11/05/17 21:50 Dose: Not Given Docusate Sodium (Colace) 100 mg PO TID [facility] Finasteride (Proscar) 5 mg PO DAILY [facility] Last Admin: 11/05/17 10:47 Dose: 5 mg Hydroxyzine HCl (Atarax) 25 mg PO DAILY [facility] Last Admin: 11/05/17 10:47 Dose: 25 mg Potassium Chloride/Dextrose/Sod Cl (Potassium Chl 20 Meq In D5-1/2ns) 1,000 mls @ 100 mls/hr IV .Q10H [facility] Last Admin: 11/04/17 17:30 Dose: 100 mls Lactated Ringer's (Lactated Ringer's) 1,000 mls @ 100 mls/hr IV .Q10H [facility] Last Admin: 11/05/17 22:38 Dose: Not Given Meropenem 500 mg/ Sodium (Chloride) 100 mls @ 100 mls/hr IVPB Q8H [facility] Last Admin: 11/05/17 18:21 Dose: 100 mls/hr Oxycodone/Acetaminophen (Percocet 5/325 Mg Tab) 1 tab PO Q4H PRN PRN Reason: Pain, moderate (4-7) Stop: 11/07/17 11:58 Last Admin: 11/05/17 02:22 Dose: 1 tab - Labs Labs: 11/05/17 07:14 11/05/17 07:14 PT 12.1 SECONDS (9.7-12.2) 11/04/17 16:39 INR 1.1 11/04/17 16:39 APTT 28 SECONDS (21-34) 11/04/17 16:39 - Constitutional Appears: No Acute Distress - Head Exam Head Exam: ATRAUMATIC, NORMAL INSPECTION, NORMOCEPHALIC - Eye Exam Eye Exam: EOMI, Normal appearance, PERRL Pupil Exam: NORMAL ACCOMODATION, PERRL - Respiratory Exam Respiratory Exam: Clear to Ausculation Bilateral, NORMAL BREATHING PATTERN - Cardiovascular Exam Cardiovascular Exam: REGULAR RHYTHM, +S1, +S2. absent: Murmur - GI/Abdominal Exam GI & Abdominal Exam: Soft, Normal Bowel Sounds. absent: Tenderness - Rectal Exam Rectal Exam: Deferred
--- NOTE | 2017-11-05 23:52 | PCM.URO ---
Urology Progress Note - General General: Tolerating Diet (Urology PM check Awake and alert. Comfortable Previous fever and rigors) - Subjective Abdominal Pain: No Flank Pain: No Nausea: No Vomiting: No Hematuria: Yes (sl pink, clears promptly) Dsypnea: No Chest Pain: No Fever & Chills: Yes Other: Had BM. Comfortable - Objective Lab Studies: Reviewed Lab Results Last 24 Hours: Laboratory Results - last 24 hr 11/05/17 11/05/17 11/05/17 07:14 07:14 08:32 WBC 16.2 H D RBC 4.18 L Hgb 11.1 L Hct 34.2 L MCV 81.7 MCH 26.4 L MCHC 32.4 L RDW 15.5 H Plt Count 219 MPV 9.0 pO2 VBG pH VBG pCO2 VBG HCO3 VBG Total CO2 VBG O2 Sat (Calc) VBG Base Excess VBG Potassium Glucose Lactate Sodium 137 Potassium 4.3 Chloride 107 Carbon Dioxide 21 L Anion Gap 13 BUN 16 Creatinine 1.6 H Est GFR ( Amer) 52 Est GFR (Non-Af Amer) 43 Random Glucose 101 Lactic Acid 3.7 H Calcium 8.1 L Magnesium 1.8 Venous Blood Potassium 11/05/17 12:14 WBC RBC Hgb Hct MCV MCH MCHC RDW Plt Count MPV pO2 19 L VBG pH 7.35 VBG pCO2 41 VBG HCO3 20.7 VBG Total CO2 23.9 VBG O2 Sat (Calc) 29.3 L VBG Base Excess -2.9 L VBG Potassium 4.3 Glucose 108 Lactate 2.2 H Sodium 136.0 Potassium Chloride 110.0 H Carbon Dioxide Anion Gap BUN Creatinine Est GFR ( Amer) Est GFR (Non-Af Amer) Random Glucose Lactic Acid Calcium Magnesium Venous Blood Potassium 4.3 Intake & Output: Intake & Output 11/05/17 11/05/17 11/06/17 06:59 18:59 06:59 Intake Total 6600 05658 Output Total 8050 84989 900 Balance -1450 -4200 -900 Intake: Intake, IV Amount 400 800 Left Wrist 400 800 Oral 300 600 Other 5900 56686 Output: Urine 8050 33150 900 3-way Urethral 1800 2800 900 Other: Voiding Method 3-way Dumont with CBI Vital Signs: Vital Signs - 24 hr 11/04/17 11/05/17 11/05/17 23:50 04:05 04:06 Temperature 98.2 F 97.7 F Pulse Rate 94 H 88 89 Respiratory 20 20 Rate Blood Pressure 102/69 115/73 O2 Sat by Pulse 98 98 Oximetry 11/05/17 11/05/17 11/05/17 06:45 07:40 08:00 Temperature 100.1 F H 101.8 F H Pulse Rate 134 H 122 H Respiratory 20 Rate Blood Pressure 171/108 H O2 Sat by Pulse 95 Oximetry 11/05/17 11/05/17 11/05/17 08:04 08:06 08:23 Temperature 101.8 F H 101.8 F H 101.8 F H Pulse Rate 133 H Respiratory 22 Rate Blood Pressure 170/105 H O2 Sat by Pulse 95 Oximetry 11/05/17 11/05/17 11/05/17 08:25 09:04 09:23 Temperature 103.2 F H 102.2 F H 102.2 F H Pulse Rate 120 H Respiratory 22 Rate Blood Pressure 160/99 H O2 Sat by Pulse 97 Oximetry 11/05/17 11/05/17 11/05/17 09:25 10:24 10:40 Temperature 102.2 F H 102.9 F H 101.8 F H Pulse Rate 120 H 113 H 121 H Respiratory 20 20 20 Rate Blood Pressure 130/79 125/78 122/76 O2 Sat by Pulse 96 98 98 Oximetry 11/05/17 11/05/17 11/05/17 12:00 12:42 14:00 Temperature 100.3 F H 98.8 F Pulse Rate 109 H 106 H Respiratory 20 Rate Blood Pressure 118/78 O2 Sat by Pulse 95 Oximetry 11/05/17 11/05/17 11/05/17 14:40 15:23 16:00 Temperature 98.6 F 97.3 F L Pulse Rate 98 H 93 H 97 H Respiratory 20 20 Rate Blood Pressure 115/74 101/65 O2 Sat by Pulse 99 99 Oximetry 11/05/17 11/05/17 11/05/17 18:15 18:50 20:55 Temperature 99.8 F H 97.5 F L 98.1 F Pulse Rate 97 H 89 Respiratory 18 Rate Blood Pressure 144/82 O2 Sat by Pulse 97 Oximetry 11/05/17 21:50 Temperature 97.8 F Pulse Rate 89 Respiratory 20 Rate Blood Pressure 102/66 O2 Sat by Pulse 99 Oximetry - Physical Exam Abdominal Exam: Soft, Non-Tender, Non-Distended Bowel Sounds: Normal Back: No CVA Tenderness Genitalia: Without Inflammation Urine Color: Light [place], [place] Extremities: Normal: Bilateral - Male Phallus: Normal Scrotum: Normal Testes: Normal: Bilateral - Plan Advance Diet: Yes Catheter Care: Yes Intake & Output: Yes See Orders: Yes Additional Information: Imp: UTI, w fever, rigors. Improved this PM. P: antibiotic rx as per TANYA hi. urine culture - gram negative rods, further identification and sensitivity are pending. Dumont cath to straight drainage. OOB, ambulation - Date & Time of Note Date: 11/05/17 Time: 19:00
[2017-11-06] MEDS: Meropenem 500 MG in Sodium Chloride 0.9% 100 ML IVPB SCH (01:47)
[2017-11-06] MEDS: Lactated Ringer's 1,000 ML IV SCH ×4 (05:31→18:36)
[2017-11-06 08:07] LABS: BASO # 0.1 K/uL (0.0-0.2); BASO % 0.7 % (0.0-2.0); EOS # 0.2 K/uL (0.0-0.7); EOS % 1.1 % (0.0-4.0); HEMATOCRIT 30.4 % (35.0-51.0); LYMPH # 1.5 K/uL (1.0-4.3); LYMPH % 7.9 % (20.0-40.0); MEAN CELL VOLUME 79.9 fL (80.0-94.0); MEAN CORPUSCULAR HEMOGLOBIN 26.5 pg (27.0-31.0); MEAN CORPUSCULAR HGB CONC 33.2 g/dL (33.0-37.0); MEAN PLATELET VOLUME 9.3 fL (7.2-11.7); MONO # 0.6 K/uL (0.0-0.8); MONO % 3.3 % (0.0-10.0); PLATELET COUNT 188 K/uL (130-400); RED CELL DISTRIBUTION WIDTH 15.5 % (11.5-14.5)
--- NOTE | 2017-11-06 08:15 | OP ---
PROCEDURE DATE: 11/04/2017 PREOPERATIVE DIAGNOSES: Urinary retention. Prostatic enlargement. POSTOPERATIVE DIAGNOSES: Urinary retention. Prostatic enlargement. PROCEDURE: Cystoscopy. Removal of bilateral ureteral stents. Transurethral resection of prostate. OPERATING SURGEON: Maria Ines Cifuentes MD. DESCRIPTION OF PROCEDURE: Procedure as follows. The patient received perioperative antibiotics. The patient was placed in lithotomy position. The genitalia prepped and draped in sterile fashion. Anesthesia was provided by the anesthesiologist. A 22-Ch[place]an cystoscope sheath was introduced under direct vision. Urethra, prostate and bladder were inspected with 30-degrees lens. Procedure was performed under video endoscopic control. FINDINGS: There was no stricture in the anterior urethra. There was evidence of trilobar prostatic hypertrophy. Prostatic urethra was approximately 3 cm in length and it was occlusive secondary to lateral lobe hypertrophy as well as to middle lobe hypertrophy at the bladder neck. There was a moderate bladder trabeculation. There were bilateral ureteral stents in place. The stents were grasped with rigid grasping forceps and removed. The ureteral orifices were identified. The orifices were identified and spared throughout the rest of the procedure. The urine had been sent for bacteriologic examination. Cystoscope and sheath were removed. A 26-Chilean continuous-flow resectoscope sheath was introduced under direct vision. Resection of the prostate was performed as follows. The middle lobe at the bladder neck was resected on the floor. Thereafter, the anterior roof tissue was resected. Subsequently, the lateral lobes were resected. Thereafter, the floor and apical prostatic tissue were resected, with the surgeon's index finger within the O'[place]urt drapes in the rectum. Hemostasis was achieved after each section of resection. The prostatic chips were removed using the [employer] scientific evacuator. The resectoscope was reinserted. Hemostasis was complete. Ureteral orifices were intact. The veru was intact. Resectoscope and sheath were removed. Dumont catheter was inserted. Bladder drainage was clear with mild traction applied. The patient tolerated the procedure without complication. Maria Ines Cifuentes MD
[2017-11-06 09:20] LABS: ALB/GLOB RATIO 0.8 (1.0-2.1); ALKALINE PHOSPHATASE 98 U/L (38-126); ALT/SGPT 104 U/L (21-72); AST/SGOT 108 U/L (17-59); BILIRUBIN,TOTAL 0.4 mg/dL (0.2-1.3); BLOOD UREA NITROGEN 14 mg/dL (9-20); CALCIUM 8.5 mg/dl (8.6-10.4); CARBON DIOXIDE 27 mmol/L (22-30); CHLORIDE 106 mmol/L (98-107); GFR AFRICAN-AMERICAN > 60; GLUCOSE,RANDOM 90 mg/dL (75-110); POTASSIUM 4.3 mmol/L (3.6-5.2); SODIUM 135 mmol/L (132-148); TOTAL PROTEIN 6.6 g/dL (6.3-8.3)
[2017-11-06] MEDS ORDERED: Vancomycin 1 gm/NS 200 ml 1 GM/200 ML BAG IVPB ONE (10:00)
--- NOTE | 2017-11-06 10:37 | PCM.URO ---
Urology Progress Note - Objective Lab Studies: Reviewed (urine clear / abdomen soft) Lab Results Last 24 Hours: Laboratory Results - last 24 hr 11/05/17 11/06/17 11/06/17 12:14 07:51 07:51 WBC 19.0 H RBC 3.81 L Hgb 10.1 L Hct 30.4 L MCV 79.9 L MCH 26.5 L MCHC 33.2 RDW 15.5 H Plt Count 188 MPV 9.3 Neut % (Auto) 87.0 H Lymph % (Auto) 7.9 L [place] % (Auto) 3.3 Eos % (Auto) 1.1 Baso % (Auto) 0.7 Neut # 16.5 H Lymph # 1.5 [place] # 0.6 Eos # 0.2 Baso # 0.1 pO2 19 L VBG pH 7.35 VBG pCO2 41 VBG HCO3 20.7 VBG Total CO2 23.9 VBG O2 Sat (Calc) 29.3 L VBG Base Excess -2.9 L VBG Potassium 4.3 Sodium 136.0 135 Chloride 110.0 H 106 Glucose 108 Lactate 2.2 H Potassium 4.3 Carbon Dioxide 27 Anion Gap 7 L BUN 14 Creatinine 1.4 Est GFR ( Amer) > 60 Est GFR (Non-Af Amer) 51 Random Glucose 90 Calcium 8.5 L Total Bilirubin 0.4 AST 108 H D ALT 104 H D Alkaline Phosphatase 98 Total Protein 6.6 Albumin 2.8 L D Globulin 3.7 Albumin/Globulin Ratio 0.8 L Venous Blood Potassium 4.3 Intake & Output: Intake & Output 11/05/17 11/06/17 11/06/17 18:59 06:59 18:59 Intake Total 35157 700 Output Total 28906 900 Balance -4200 -200 Intake: Intake, IV Amount 800 700 Left Wrist 800 700 Oral 600 Other 91090 Output: Urine 61562 900 3-way Urethral 2800 900 Vital Signs: Vital Signs - 24 hr 11/05/17 11/05/17 11/05/17 10:40 12:00 12:42 Temperature 101.8 F H 100.3 F H Pulse Rate 121 H 109 H 106 H Respiratory 20 20 Rate Blood Pressure 122/76 118/78 O2 Sat by Pulse 98 95 Oximetry 11/05/17 11/05/17 11/05/17 14:00 14:40 15:23 Temperature 98.8 F 98.6 F 97.3 F L Pulse Rate 98 H 93 H Respiratory 20 20 Rate Blood Pressure 115/74 101/65 O2 Sat by Pulse 99 99 Oximetry 11/05/17 11/05/17 11/05/17 16:00 18:15 18:50 Temperature 99.8 F H 97.5 F L Pulse Rate 97 H 97 H Respiratory 18 Rate Blood Pressure 144/82 O2 Sat by Pulse 97 Oximetry 11/05/17 11/05/17 11/05/17 20:55 21:50 23:30 Temperature 98.1 F 97.8 F Pulse Rate 89 89 84 Respiratory 20 Rate Blood Pressure 102/66 O2 Sat by Pulse 99 Oximetry 11/06/17 11/06/17 11/06/17 00:00 02:20 04:00 Temperature 99.9 F H 98.2 F 99.6 F Pulse Rate 83 84 83 Respiratory 20 20 20 Rate Blood Pressure 109/73 109/69 108/70 O2 Sat by Pulse 95 96 97 Oximetry 11/06/17 11/06/17 11/06/17 04:10 05:36 06:28 Temperature 98.3 F 98.3 F Pulse Rate 78 Respiratory Rate Blood Pressure O2 Sat by Pulse Oximetry 11/06/17 11/06/17 08:00 10:36 Temperature 98.5 F 99.8 F H Pulse Rate 85 86 Respiratory 20 20 Rate Blood Pressure 110/72 116/78 O2 Sat by Pulse 100 95 Oximetry
[2017-11-06 10:50] LABS: EOSINOPHIL 1 % (0-4); NEUTROPHIL 69 % (50-75); TOTAL CELLS COUNTED 100
--- NOTE | 2017-11-06 17:38 | PCM.URO ---
Urology Progress Note - General General: Tolerating Diet - Subjective Abdominal Pain: No Flank Pain: No Nausea: No Vomiting: No Hematuria: No Dsypnea: No Chest Pain: No Fever & Chills: Yes - Objective Lab Studies: Reviewed (leukocytosis Pseudomonas uti) Lab Results Last 24 Hours: Laboratory Results - last 24 hr 11/06/17 11/06/17 07:51 07:51 WBC 19.0 H RBC 3.81 L Hgb 10.1 L Hct 30.4 L MCV 79.9 L MCH 26.5 L MCHC 33.2 RDW 15.5 H Plt Count 188 MPV 9.3 Neut % (Auto) 87.0 H Lymph % (Auto) 7.9 L [place] % (Auto) 3.3 Eos % (Auto) 1.1 Baso % (Auto) 0.7 Neut # 16.5 H Lymph # 1.5 [place] # 0.6 Eos # 0.2 Baso # 0.1 Neutrophils % (Manual) 69 Band Neutrophils % 15 H* Lymphocytes % (Manual) 15 L Monocytes % (Manual) TEST NOT PERFORMED Eosinophils % (Manual) 1 Platelet Estimate Normal Polychromasia Slight Hypochromasia (manual) Slight Anisocytosis (manual) Slight Ovalocytes Slight Sodium 135 Potassium 4.3 Chloride 106 Carbon Dioxide 27 Anion Gap 7 L BUN 14 Creatinine 1.4 Est GFR ( Amer) > 60 Est GFR (Non-Af Amer) 51 Random Glucose 90 Calcium 8.5 L Total Bilirubin 0.4 AST 108 H D ALT 104 H D Alkaline Phosphatase 98 Total Protein 6.6 Albumin 2.8 L D Globulin 3.7 Albumin/Globulin Ratio 0.8 L Intake & Output: Intake & Output 11/05/17 11/06/17 11/06/17 18:59 06:59 18:59 Intake Total 17857 700 1300 Output Total 33844 900 1000 Balance -4200 -200 300 Intake: Intake, IV Amount 800 700 800 Left Wrist 800 700 800 Oral 600 500 Other 07045 Output: Urine 06011 900 1000 3-way Urethral 2800 900 1000 Vital Signs: Vital Signs - 24 hr 11/05/17 11/05/17 11/05/17 18:15 18:50 20:55 Temperature 99.8 F H 97.5 F L 98.1 F Pulse Rate 97 H 89 Respiratory 18 Rate Blood Pressure 144/82 O2 Sat by Pulse 97 Oximetry 11/05/17 11/05/17 11/06/17 21:50 23:30 00:00 Temperature 97.8 F 99.9 F H Pulse Rate 89 84 83 Respiratory 20 20 Rate Blood Pressure 102/66 109/73 O2 Sat by Pulse 99 95 Oximetry 11/06/17 11/06/17 11/06/17 02:20 04:00 04:10 Temperature 98.2 F 99.6 F Pulse Rate 84 83 78 Respiratory 20 20 Rate Blood Pressure 109/69 108/70 O2 Sat by Pulse 96 97 Oximetry 11/06/17 11/06/17 11/06/17 05:36 06:28 08:00 Temperature 98.3 F 98.3 F 98.5 F Pulse Rate 85 Respiratory 20 Rate Blood Pressure 110/72 O2 Sat by Pulse 100 Oximetry 11/06/17 11/06/17 11/06/17 10:36 12:00 13:33 Temperature 99.8 F H 98.9 F Pulse Rate 86 88 96 H Respiratory 20 20 Rate Blood Pressure 116/78 117/79 O2 Sat by Pulse 95 95 Oximetry - Physical Exam Abdominal Exam: Soft, Non-Tender, Non-Distended Back: No CVA Tenderness Genitalia: Without Inflammation Urinary Catheter Draining Well: Yes Urine Color: Light Nancy Extremities: Normal: Bilateral - Male Phallus: Normal Scrotum: Normal - Plan Advance Diet: Yes Catheter Care: Yes Intake & Output: Yes Additional Information: Imp: Stable overall. Less fever. UTI. P turp. P: antibiotic rx. fontanez cath to [place]. Will discuss re further treatment - Date & Time of Note Date: 11/06/17 Time: 13:30
[2017-11-06] MEDS ORDERED: MEROPENEM 500 MG in NS 500 MG/50 ML BAG IV SCH (18:00)
--- NOTE | 2017-11-06 18:32 | CP.PCM.PN ---
Subjective - Date & Time of Evaluation Date of Evaluation: 11/06/17 Time of Evaluation: 08:00 - Subjective Subjective: discussed on rounds growing mdro in urine sens to amikacin/ zosyn enterococcus in blood Objective - Vital Signs/Intake and Output Vital Signs (last 24 hours): Temp Pulse Resp BP Pulse Ox 98.9 F 96 H 20 117/79 95 11/06/17 13:33 11/06/17 13:33 11/06/17 13:33 11/06/17 13:33 11/06/17 13:33 Intake and Output: 11/06/17 11/06/17 06:59 18:59 Intake Total 700 1300 Output Total 900 1000 Balance -200 300 - Medications Medications: Current Medications Acetaminophen (Tylenol 325mg Tab) 650 mg PO Q6 PRN PRN Reason: Fever >100.4 F Last Admin: 11/05/17 08:04 Dose: 650 mg Amlodipine Besylate (Norvasc) 5 mg PO DAILY [facility] Last Admin: 11/06/17 10:39 Dose: 5 mg Clonazepam (Klonopin) 0.5 mg PO BID [facility] Last Admin: 11/06/17 18:22 Dose: 0.5 mg Clonidine HCl (Catapres) 0.1 mg PO HS [facility] Last Admin: 11/05/17 21:50 Dose: Not Given Docusate Sodium (Colace) 100 mg PO TID [facility] Last Admin: 11/06/17 18:22 Dose: 100 mg Finasteride (Proscar) 5 mg PO DAILY [facility] Last Admin: 11/06/17 10:43 Dose: 5 mg Hydroxyzine HCl (Atarax) 25 mg PO DAILY [facility] Last Admin: 11/06/17 10:39 Dose: 25 mg Potassium Chloride/Dextrose/Sod Cl (Potassium Chl 20 Meq In D5-1/2ns) 1,000 mls @ 100 mls/hr IV .Q10H [facility] Last Admin: 11/04/17 17:30 Dose: 100 mls Lactated Ringer's (Lactated Ringer's) 1,000 mls @ 100 mls/hr IV .Q10H [facility] Last Admin: 11/06/17 18:24 Dose: 100 mls/hr Meropenem/Sodium Chloride (Meropenem 500 Mg/Ns 50 Ml) 500 mg in 50 mls @ 50 mls /hr IV Q8H [facility] Last Admin: 11/06/17 18:25 Dose: 50 mls/hr Multivitamins/Minerals (Therapeutic-M Tab) 1 tab PO 0800 [facility] Oxycodone/Acetaminophen (Percocet 5/325 Mg Tab) 1 tab PO Q4H PRN PRN Reason: Pain, moderate (4-7) Stop: 11/07/17 11:58 Last Admin: 11/05/17 02:22 Dose: 1 tab - Labs Labs: 11/06/17 07:51 11/06/17 07:51 PT 12.1 SECONDS (9.7-12.2) 11/04/17 16:39 INR 1.1 11/04/17 16:39 APTT 28 SECONDS (21-34) 11/04/17 16:39 - Constitutional Appears: Toxic, Chronically Ill - Head Exam Head Exam: NORMOCEPHALIC - Eye Exam Eye Exam: PERRL - ENT Exam ENT Exam: Mucous Membranes Dry - Neck Exam Neck Exam: absent: Lymphadenopathy - Respiratory Exam Respiratory Exam: Decreased Breath Sounds - Cardiovascular Exam Cardiovascular Exam: REGULAR RHYTHM - GI/Abdominal Exam GI & Abdominal Exam: Distended, Soft - Rectal Exam Rectal Exam: Deferred - Exam Exam: NORMAL INSPECTION - Extremities Exam Extremities Exam: absent: Pedal Edema - Back Exam Back Exam: absent: CVA tenderness (L), CVA tenderness (R) - Neurological Exam Neurological Exam: Alert, Awake - Psychiatric Exam Psychiatric exam: Depressed - Skin Skin Exam: Dry Assessment and Plan - Assessment and Plan (Free Text) Assessment: severe sepsis enterococcus in blood pseudomonas MDRO urine will isolate
[2017-11-06] MEDS ORDERED: Piperacill/Tazo 3.375gm in Dex 3.375 GM/50 ML BAG IVPB SCH (19:00)
[2017-11-06] MEDS: Multivitamin With Minerals Tab PO SCH (19:30)
[2017-11-06] MEDS: AMIKACIN IVPB SCH (19:30)
[2017-11-06] MEDS: DEXTROSE 5% IVPB SCH (19:30)
[2017-11-06] MEDS: WATER IVPB SCH (19:30)
[2017-11-06] MEDS: Piperacill/Tazo 4.5gm in Dex 4.5 GM/100 ML BAG IVPB SCH ×3 (21:52→22:15)
[2017-11-06 23:10] LABS: RBC URINE 2340 /hpf (0-3); URINE BACTERIA MOD (<OCC); URINE BILIRUBIN NEGATIVE (NEGATIVE); URINE BLOOD 3+ (NEGATIVE); URINE GLUCOSE (UA) NORMAL (Normal); URINE KETONE NEGATIVE (NEGATIVE); URINE LEUKOCYTE ESTERASE 2+ Leu/uL (Negative); URINE PROTEIN 2+ mg/dL (NEGATIVE); URINE UROBILINOGEN NORMAL mg/dL (0.2-1.0); WBC URINE 105 /hpf (0-5)
[2017-11-06 23:16] LABS: URINE COLOR RED (YELLOW)
--- NOTE | 2017-11-06 23:16 | CP.PCM.PN ---
Subjective - Date & Time of Evaluation Date of Evaluation: 11/06/17 Time of Evaluation: 19:00 - Subjective Subjective: Pt seen and examined, febrile, depressed s/p TURp BPH growing mdro in urine sens to amikacin/ zosyn enterococcus in blood Objective - Vital Signs/Intake and Output Vital Signs (last 24 hours): Temp Pulse Resp BP Pulse Ox 98.9 F 96 H 20 117/79 95 11/06/17 13:33 11/06/17 13:33 11/06/17 13:33 11/06/17 13:33 11/06/17 13:33 Intake and Output: 11/06/17 11/07/17 18:59 06:59 Intake Total 1300 Output Total 1000 Balance 300 - Medications Medications: Current Medications Acetaminophen (Tylenol 325mg Tab) 650 mg PO Q6 PRN PRN Reason: Fever >100.4 F Last Admin: 11/05/17 08:04 Dose: 650 mg Amlodipine Besylate (Norvasc) 5 mg PO DAILY [facility] Last Admin: 11/06/17 10:39 Dose: 5 mg Clonazepam (Klonopin) 0.5 mg PO BID [facility] Last Admin: 11/06/17 18:22 Dose: 0.5 mg Clonidine HCl (Catapres) 0.1 mg PO HS [facility] Last Admin: 11/06/17 21:51 Dose: 0.1 mg Docusate Sodium (Colace) 100 mg PO TID [facility] Last Admin: 11/06/17 18:22 Dose: 100 mg Finasteride (Proscar) 5 mg PO DAILY [facility] Last Admin: 11/06/17 10:43 Dose: 5 mg Hydroxyzine HCl (Atarax) 25 mg PO DAILY [facility] Last Admin: 11/06/17 10:39 Dose: 25 mg Potassium Chloride/Dextrose/Sod Cl (Potassium Chl 20 Meq In D5-1/2ns) 1,000 mls @ 100 mls/hr IV .Q10H [facility] Last Admin: 11/04/17 17:30 Dose: 100 mls Lactated Ringer's (Lactated Ringer's) 1,000 mls @ 100 mls/hr IV .Q10H [facility] Last Admin: 11/06/17 18:36 Dose: Not Given Amikacin Sulfate 500 mg/ (Dextrose) 252 mls @ 150 mls/hr IVPB Q12H [facility] Last Admin: 11/06/17 19:30 Dose: 150 mls/hr Vancomycin/Sodium Chloride (Vancomycin 1 Gm/Ns 200 Ml) 1 gm in 200 mls @ 133 mls/hr IVPB Q24H [facility] Stop: 11/12/17 10:01 Piperacillin Sod/Tazobactam Sod (Zosyn 4.5 Gm Iv Premix) 4.5 gm in 100 mls @ 100 mls/hr IVPB Q8H [facility] Last Admin: 11/06/17 22:15 Dose: Not Given Multivitamins/Minerals (Therapeutic-M Tab) 1 tab PO 0800 [facility] Last Admin: 11/06/17 19:30 Dose: 1 tab Oxycodone/Acetaminophen (Percocet 5/325 Mg Tab) 1 tab PO Q4H PRN PRN Reason: Pain, moderate (4-7) Stop: 11/07/17 11:58 Last Admin: 11/05/17 02:22 Dose: 1 tab - Labs Labs: 11/06/17 07:51 11/06/17 07:51 PT 12.1 SECONDS (9.7-12.2) 11/04/17 16:39 INR 1.1 11/04/17 16:39 APTT 28 SECONDS (21-34) 11/04/17 16:39 - Constitutional Appears: No Acute Distress - Head Exam Head Exam: ATRAUMATIC, NORMAL INSPECTION, NORMOCEPHALIC - Eye Exam Eye Exam: EOMI, Normal appearance, PERRL Pupil Exam: NORMAL ACCOMODATION, PERRL - Neck Exam Neck Exam: Full ROM, Normal Inspection. absent: Lymphadenopathy - Respiratory Exam Respiratory Exam: Clear to Ausculation Bilateral, NORMAL BREATHING PATTERN - Cardiovascular Exam Cardiovascular Exam: REGULAR RHYTHM, +S1, +S2. absent: Murmur - GI/Abdominal Exam GI & Abdominal Exam: Soft, Normal Bowel Sounds. absent: Tenderness Assessment and Plan (1) BPH (benign prostatic hyperplasia) Status: Acute (2) S/P TURP Status: Acute (3) Postoperative fever Status: Acute (4) UTI (urinary tract infection) due to Enterococcus Status: Acute
[2017-11-07] MEDS: Piperacill/Tazo 4.5gm in Dex 4.5 GM/100 ML BAG IVPB SCH ×3 (05:27→22:00)
[2017-11-07] MEDS: WATER IVPB SCH ×2 (06:15→18:06)
[2017-11-07] MEDS: AMIKACIN IVPB SCH ×2 (06:15→18:06)
[2017-11-07] MEDS: DEXTROSE 5% IVPB SCH ×2 (06:15→18:06)
[2017-11-07 07:07] LABS: BASO # 0.1 K/uL (0.0-0.2); BASO % 0.6 % (0.0-2.0); EOS # 0.6 K/uL (0.0-0.7); EOS % 3.8 % (0.0-4.0); LYMPH # 1.1 K/uL (1.0-4.3); LYMPH % 7.2 % (20.0-40.0); MEAN CELL VOLUME 79.7 fL (80.0-94.0); MEAN CORPUSCULAR HEMOGLOBIN 26.6 pg (27.0-31.0); MEAN CORPUSCULAR HGB CONC 33.4 g/dL (33.0-37.0); MONO # 0.5 K/uL (0.0-0.8); MONO % 3.2 % (0.0-10.0); PLATELET COUNT 199 K/uL (130-400); RED CELL DISTRIBUTION WIDTH 15.5 % (11.5-14.5); WHITE BLOOD COUNT 14.7 K/uL (4.8-10.8)
[2017-11-07 07:38] LABS: BLOOD UREA NITROGEN 14 mg/dL (9-20); CALCIUM 8.2 mg/dl (8.6-10.4); CARBON DIOXIDE 27 mmol/L (22-30); CHLORIDE 105 mmol/L (98-107); GFR AFRICAN-AMERICAN > 60; GLUCOSE,RANDOM 104 mg/dL (75-110); POTASSIUM 3.8 mmol/L (3.6-5.2); SODIUM 135 mmol/L (132-148)
[2017-11-07] MEDS: Lactated Ringer's 1,000 ML IV SCH (07:48)
[2017-11-07] MEDS: Vancomycin 1 gm/NS 200 ml 1 GM/200 ML BAG IVPB SCH (09:46)
[2017-11-07] MEDS: Multivitamin With Minerals Tab PO SCH (09:47)
[2017-11-07 11:11] LABS: EOSINOPHIL 2 % (0-4); TOTAL CELLS COUNTED 100
[2017-11-07 11:12] LABS: NEUTROPHIL 86 % (50-75)
[2017-11-07 11:13] LABS: LARGE PLATELETS PRESENT
[2017-11-08] MEDS: Piperacill/Tazo 4.5gm in Dex 4.5 GM/100 ML BAG IVPB SCH ×3 (05:06→21:14)
--- NOTE | 2017-11-08 05:52 | PCM.URO ---
Urology Progress Note - Objective Lab Results Last 24 Hours: Laboratory Results - last 24 hr 11/07/17 11/07/17 11/07/17 07:02 07:02 07:02 WBC 14.7 H RBC 3.64 L Hgb 9.7 L Hct 29.0 L MCV 79.7 L MCH 26.6 L MCHC 33.4 RDW 15.5 H Plt Count 199 MPV 9.0 Neut % (Auto) 85.2 H Lymph % (Auto) 7.2 L [place] % (Auto) 3.2 Eos % (Auto) 3.8 Baso % (Auto) 0.6 Neut # 12.5 H Lymph # 1.1 [place] # 0.5 Eos # 0.6 Baso # 0.1 Neutrophils % (Manual) 86 H Band Neutrophils % 1 Lymphocytes % (Manual) 6 L Monocytes % (Manual) 5 Eosinophils % (Manual) 2 Platelet Estimate Normal Large Platelets Present Polychromasia Slight Poikilocytosis (manual Slight Anisocytosis (manual) Slight Ovalocytes Slight [place] Cells Slight Sodium 135 Potassium 3.8 Chloride 105 Carbon Dioxide 27 Anion Gap 7 L BUN 14 Creatinine 1.3 Est GFR ( Amer) > 60 Est GFR (Non-Af Amer) 55 Random Glucose 104 Calcium 8.2 L Hepatitis A IgM Ab Negative Hep Bs Antigen Negative Hep B Core IgM Ab Negative Hepatitis C Antibody Negative Intake & Output: Intake & Output 11/07/17 11/07/17 11/08/17 06:59 18:59 06:59 Intake Total 1040 300 830 Output Total 2250 2200 800 Balance -1210 -1900 30 Intake: Intake, IV Amount 800 300 350 Left Wrist 800 300 350 Oral 240 480 Output: Urine 2250 2200 800 3-way Urethral 2250 2200 800 Vital Signs: Vital Signs - 24 hr 11/07/17 11/07/17 11/07/17 07:00 08:00 15:45 Temperature 97.9 F 97.4 F L Pulse Rate 64 83 80 Respiratory 20 20 Rate Blood Pressure 130/81 100/68 O2 Sat by Pulse 97 96 Oximetry 11/07/17 11/07/17 11/08/17 16:00 23:00 01:00 Temperature 98.1 F Pulse Rate 77 69 82 Respiratory 20 Rate Blood Pressure 108/69 O2 Sat by Pulse 96 Oximetry 11/08/17 04:05 Temperature 98.2 F Pulse Rate 76 Respiratory 20 Rate Blood Pressure 100/64 O2 Sat by Pulse 95 Oximetry
[2017-11-08] MEDS: DEXTROSE 5% IVPB SCH ×2 (06:18→18:29)
[2017-11-08] MEDS: AMIKACIN IVPB SCH ×2 (06:18→18:29)
[2017-11-08] MEDS: WATER IVPB SCH ×2 (06:18→18:29)
[2017-11-08] MEDS: Multivitamin With Minerals Tab PO SCH (08:01)
[2017-11-08 09:29] LABS: BASO # 0.1 K/uL (0.0-0.2); BASO % 0.9 % (0.0-2.0); EOS # 0.6 K/uL (0.0-0.7); EOS % 5.7 % (0.0-4.0); HEMATOCRIT 31.8 % (35.0-51.0); LYMPH % 20.1 % (20.0-40.0); MEAN CELL VOLUME 79.9 fL (80.0-94.0); MEAN CORPUSCULAR HEMOGLOBIN 26.6 pg (27.0-31.0); MEAN CORPUSCULAR HGB CONC 33.3 g/dL (33.0-37.0); MEAN PLATELET VOLUME 9.2 fL (7.2-11.7); MONO # 0.4 K/uL (0.0-0.8); NRBC % 0.1 % (0.0-2.0); RED CELL DISTRIBUTION WIDTH 15.5 % (11.5-14.5); WHITE BLOOD COUNT 10.2 K/uL (4.8-10.8)
[2017-11-08 09:53] LABS: CALCIUM 8.6 mg/dl (8.6-10.4); POTASSIUM 3.9 mmol/L (3.6-5.2)
[2017-11-08] MEDS: Vancomycin 1 gm/NS 200 ml 1 GM/200 ML BAG IVPB SCH (10:03)
--- NOTE | 2017-11-08 11:18 | CP.PCM.PN ---
Subjective - Date & Time of Evaluation Date of Evaluation: 11/07/17 Time of Evaluation: 19:00 - Subjective Subjective: Pt seen and examined,is feeling better Objective - Vital Signs/Intake and Output Vital Signs (last 24 hours): Temp Pulse Resp BP Pulse Ox 98.0 F 83 20 115/78 95 11/08/17 09:08 11/08/17 09:08 11/08/17 09:08 11/08/17 09:08 11/08/17 09:08 Intake and Output: 11/08/17 11/08/17 06:59 18:59 Intake Total 1180 Output Total 1350 Balance -170 - Medications Medications: Current Medications Acetaminophen (Tylenol 325mg Tab) 650 mg PO Q6 PRN PRN Reason: Fever >100.4 F Last Admin: 11/05/17 08:04 Dose: 650 mg Amlodipine Besylate (Norvasc) 5 mg PO DAILY [facility] Last Admin: 11/08/17 10:03 Dose: 5 mg Clonazepam (Klonopin) 0.5 mg PO BID [facility] Last Admin: 11/08/17 10:03 Dose: 0.5 mg Clonidine HCl (Catapres) 0.1 mg PO HS [facility] Last Admin: 11/07/17 22:45 Dose: 0.1 mg Docusate Sodium (Colace) 100 mg PO TID [facility] Last Admin: 11/08/17 10:03 Dose: 100 mg Finasteride (Proscar) 5 mg PO DAILY [facility] Last Admin: 11/08/17 10:03 Dose: 5 mg Hydroxyzine HCl (Atarax) 25 mg PO DAILY [facility] Last Admin: 11/08/17 10:03 Dose: 25 mg Amikacin Sulfate 500 mg/ (Dextrose) 252 mls @ 150 mls/hr IVPB Q12H [facility] Last Admin: 11/08/17 06:18 Dose: 150 mls/hr Vancomycin/Sodium Chloride (Vancomycin 1 Gm/Ns 200 Ml) 1 gm in 200 mls @ 133 mls/hr IVPB Q24H [facility] Stop: 11/12/17 10:01 Last Admin: 11/08/17 10:03 Dose: 133 mls/hr Piperacillin Sod/Tazobactam Sod (Zosyn 4.5 Gm Iv Premix) 4.5 gm in 100 mls @ 100 mls/hr IVPB Q8H [facility] Last Admin: 11/08/17 05:06 Dose: 100 mls/hr Multivitamins/Minerals (Therapeutic-M Tab) 1 tab PO 0800 [facility] Last Admin: 11/08/17 08:01 Dose: 1 tab - Labs Labs: 11/08/17 09:17 11/08/17 09:17 PT 12.1 SECONDS (9.7-12.2) 11/04/17 16:39 INR 1.1 11/04/17 16:39 APTT 28 SECONDS (21-34) 11/04/17 16:39 - Constitutional Appears: No Acute Distress - Head Exam Head Exam: ATRAUMATIC, NORMAL INSPECTION, NORMOCEPHALIC - Eye Exam Eye Exam: EOMI, Normal appearance, PERRL Pupil Exam: NORMAL ACCOMODATION, PERRL - Respiratory Exam Respiratory Exam: Clear to Ausculation Bilateral, NORMAL BREATHING PATTERN - Cardiovascular Exam Cardiovascular Exam: REGULAR RHYTHM, +S1, +S2. absent: Murmur - GI/Abdominal Exam GI & Abdominal Exam: Soft, Normal Bowel Sounds. absent: Tenderness - Rectal Exam Rectal Exam: Deferred Assessment and Plan (1) BPH (benign prostatic hyperplasia) Status: Acute (2) Postoperative fever Status: Acute (3) S/P TURP Status: Acute (4) UTI (urinary tract infection) due to Enterococcus Status: Acute
--- NOTE | 2017-11-08 11:19 | CP.PCM.PN ---
Subjective - Date & Time of Evaluation Date of Evaluation: 11/08/17 Time of Evaluation: 18:00 - Subjective Subjective: Pt seen and examined at bedside, afebrile, wbc trending down, post op fever is resolved, pt is on medical optimization Objective - Vital Signs/Intake and Output Vital Signs (last 24 hours): Temp Pulse Resp BP Pulse Ox 98.0 F 83 20 115/78 95 11/08/17 09:08 11/08/17 09:08 11/08/17 09:08 11/08/17 09:08 11/08/17 09:08 Intake and Output: 11/08/17 11/08/17 06:59 18:59 Intake Total 1180 Output Total 1350 Balance -170 - Medications Medications: Current Medications Acetaminophen (Tylenol 325mg Tab) 650 mg PO Q6 PRN PRN Reason: Fever >100.4 F Last Admin: 11/05/17 08:04 Dose: 650 mg Amlodipine Besylate (Norvasc) 5 mg PO DAILY [facility] Last Admin: 11/08/17 10:03 Dose: 5 mg Clonazepam (Klonopin) 0.5 mg PO BID [facility] Last Admin: 11/08/17 10:03 Dose: 0.5 mg Clonidine HCl (Catapres) 0.1 mg PO HS [facility] Last Admin: 11/07/17 22:45 Dose: 0.1 mg Docusate Sodium (Colace) 100 mg PO TID [facility] Last Admin: 11/08/17 10:03 Dose: 100 mg Finasteride (Proscar) 5 mg PO DAILY [facility] Last Admin: 11/08/17 10:03 Dose: 5 mg Hydroxyzine HCl (Atarax) 25 mg PO DAILY [facility] Last Admin: 11/08/17 10:03 Dose: 25 mg Amikacin Sulfate 500 mg/ (Dextrose) 252 mls @ 150 mls/hr IVPB Q12H [facility] Last Admin: 11/08/17 06:18 Dose: 150 mls/hr Vancomycin/Sodium Chloride (Vancomycin 1 Gm/Ns 200 Ml) 1 gm in 200 mls @ 133 mls/hr IVPB Q24H [facility] Stop: 11/12/17 10:01 Last Admin: 11/08/17 10:03 Dose: 133 mls/hr Piperacillin Sod/Tazobactam Sod (Zosyn 4.5 Gm Iv Premix) 4.5 gm in 100 mls @ 100 mls/hr IVPB Q8H [facility] Last Admin: 11/08/17 05:06 Dose: 100 mls/hr Multivitamins/Minerals (Therapeutic-M Tab) 1 tab PO 0800 [facility] Last Admin: 11/08/17 08:01 Dose: 1 tab - Labs Labs: 11/08/17 09:17 11/08/17 09:17 PT 12.1 SECONDS (9.7-12.2) 11/04/17 16:39 INR 1.1 11/04/17 16:39 APTT 28 SECONDS (21-34) 11/04/17 16:39 - Constitutional Appears: No Acute Distress - Head Exam Head Exam: ATRAUMATIC, NORMAL INSPECTION, NORMOCEPHALIC - Eye Exam Eye Exam: EOMI, Normal appearance, PERRL Pupil Exam: NORMAL ACCOMODATION, PERRL - Respiratory Exam Respiratory Exam: Clear to Ausculation Bilateral, NORMAL BREATHING PATTERN - Cardiovascular Exam Cardiovascular Exam: REGULAR RHYTHM, +S1, +S2. absent: Murmur - GI/Abdominal Exam GI & Abdominal Exam: Soft, Normal Bowel Sounds. absent: Tenderness Assessment and Plan (1) BPH (benign prostatic hyperplasia) Status: Acute (2) Postoperative fever Status: Resolved (3) S/P TURP Status: Acute (4) UTI (urinary tract infection) due to Enterococcus Status: Acute
--- NOTE | 2017-11-08 15:11 | CP.PCM.PN ---
Subjective - Date & Time of Evaluation Date of Evaluation: 11/08/17 Time of Evaluation: 08:00 - Subjective Subjective: enterococcus and MDR- Pseudomonas in the blood will need 14 days IV rx- zosyn + amikacin Objective - Vital Signs/Intake and Output Vital Signs (last 24 hours): Temp Pulse Resp BP Pulse Ox 98.0 F 83 20 115/78 95 11/08/17 09:08 11/08/17 09:08 11/08/17 09:08 11/08/17 09:08 11/08/17 09:08 Intake and Output: 11/08/17 11/08/17 06:59 18:59 Intake Total 1180 Output Total 1350 1200 Balance -170 -1200 - Medications Medications: Current Medications Acetaminophen (Tylenol 325mg Tab) 650 mg PO Q6 PRN PRN Reason: Fever >100.4 F Last Admin: 11/05/17 08:04 Dose: 650 mg Amlodipine Besylate (Norvasc) 5 mg PO DAILY [facility] Last Admin: 11/08/17 10:03 Dose: 5 mg Clonazepam (Klonopin) 0.5 mg PO BID [facility] Last Admin: 11/08/17 10:03 Dose: 0.5 mg Clonidine HCl (Catapres) 0.1 mg PO HS [facility] Last Admin: 11/07/17 22:45 Dose: 0.1 mg Docusate Sodium (Colace) 100 mg PO TID [facility] Last Admin: 11/08/17 13:36 Dose: 100 mg Finasteride (Proscar) 5 mg PO DAILY [facility] Last Admin: 11/08/17 10:03 Dose: 5 mg Hydroxyzine HCl (Atarax) 25 mg PO DAILY [facility] Last Admin: 11/08/17 10:03 Dose: 25 mg Amikacin Sulfate 500 mg/ (Dextrose) 252 mls @ 150 mls/hr IVPB Q12H [facility] Last Admin: 11/08/17 06:18 Dose: 150 mls/hr Piperacillin Sod/Tazobactam Sod (Zosyn 4.5 Gm Iv Premix) 4.5 gm in 100 mls @ 100 mls/hr IVPB Q8H [facility] Last Admin: 11/08/17 13:36 Dose: 100 mls/hr Multivitamins/Minerals (Therapeutic-M Tab) 1 tab PO 0800 [facility] Last Admin: 11/08/17 08:01 Dose: 1 tab - Labs Labs: 11/08/17 09:17 11/08/17 09:17 PT 12.1 SECONDS (9.7-12.2) 11/04/17 16:39 INR 1.1 11/04/17 16:39 APTT 28 SECONDS (21-34) 11/04/17 16:39 - Constitutional Appears: Non-toxic, Chronically Ill - Head Exam Head Exam: NORMOCEPHALIC - Eye Exam Eye Exam: PERRL - ENT Exam ENT Exam: Mucous Membranes Dry - Neck Exam Neck Exam: absent: Lymphadenopathy - Respiratory Exam Respiratory Exam: Decreased Breath Sounds - Cardiovascular Exam Cardiovascular Exam: REGULAR RHYTHM - GI/Abdominal Exam GI & Abdominal Exam: Distended, Soft - Rectal Exam Rectal Exam: Deferred - Exam Exam: NORMAL INSPECTION - Extremities Exam Extremities Exam: absent: Pedal Edema - Back Exam Back Exam: absent: CVA tenderness (L), CVA tenderness (R) - Neurological Exam Neurological Exam: Alert, Awake Assessment and Plan - Assessment and Plan (Free Text) Plan: severe sepsis mdro- pseudomonas await amikacin level
--- NOTE | 2017-11-09 03:09 | CARD ---
APPROVED REPORT EKG Measurement Heart [id number] <Conclusion> Sinus tachycardia ST & T wave abnormality, consider inferior ischemia ST & T wave abnormality, consider anterolateral ischemia Abnormal ECG
[2017-11-09] MEDS: Piperacill/Tazo 4.5gm in Dex 4.5 GM/100 ML BAG IVPB SCH ×3 (05:44→20:44)
[2017-11-09] MEDS: AMIKACIN IVPB SCH (07:01)
[2017-11-09] MEDS: WATER IVPB SCH (07:01)
[2017-11-09] MEDS: DEXTROSE 5% IVPB SCH (07:01)
[2017-11-09 07:30] LABS: BASO # 0.1 K/uL (0.0-0.2); BASO % 1.4 % (0.0-2.0); EOS # 0.6 K/uL (0.0-0.7); EOS % 6.4 % (0.0-4.0); HEMATOCRIT 30.2 % (35.0-51.0); LYMPH # 1.5 K/uL (1.0-4.3); LYMPH % 17.4 % (20.0-40.0); MEAN CORPUSCULAR HEMOGLOBIN 26.8 pg (27.0-31.0); MONO # 0.5 K/uL (0.0-0.8); RED CELL DISTRIBUTION WIDTH 15.5 % (11.5-14.5); WHITE BLOOD COUNT 8.8 K/uL (4.8-10.8)
[2017-11-09 08:14] LABS: ALB/GLOB RATIO 0.8 (1.0-2.1); BILIRUBIN,TOTAL 0.5 mg/dL (0.2-1.3); CALCIUM 8.6 mg/dl (8.6-10.4); TOTAL PROTEIN 6.9 g/dL (6.3-8.3)
[2017-11-09] MEDS: Multivitamin With Minerals Tab PO SCH (09:50)
--- NOTE | 2017-11-09 10:47 | CP.PCM.PN ---
Subjective - Date & Time of Evaluation Date of Evaluation: 11/09/17 Time of Evaluation: 06:00 - Subjective Subjective: events noted IV rx in progress creat trending higher await amikacin level Objective - Vital Signs/Intake and Output Vital Signs (last 24 hours): Temp Pulse Resp BP Pulse Ox 98.2 F 73 20 124/82 94 L 11/09/17 08:00 11/09/17 09:49 11/09/17 08:00 11/09/17 09:49 11/09/17 08:00 Intake and Output: 11/09/17 11/09/17 06:59 18:59 Intake Total 940 Output Total 1220 Balance -280 - Medications Medications: Current Medications Acetaminophen (Tylenol 325mg Tab) 650 mg PO Q6 PRN PRN Reason: Fever >100.4 F Last Admin: 11/05/17 08:04 Dose: 650 mg Amlodipine Besylate (Norvasc) 5 mg PO DAILY [facility] Last Admin: 11/09/17 09:50 Dose: 5 mg Clonazepam (Klonopin) 0.5 mg PO BID PRO Last Admin: 11/09/17 09:50 Dose: 0.5 mg Clonidine HCl (Catapres) 0.1 mg PO HS [facility] Last Admin: 11/08/17 21:15 Dose: 0.1 mg Docusate Sodium (Colace) 100 mg PO TID PRO Last Admin: 11/09/17 09:50 Dose: 100 mg Finasteride (Proscar) 5 mg PO DAILY [facility] Last Admin: 11/09/17 09:50 Dose: 5 mg Hydroxyzine HCl (Atarax) 25 mg PO DAILY [facility] Last Admin: 11/09/17 09:50 Dose: 25 mg Amikacin Sulfate 500 mg/ (Dextrose) 252 mls @ 150 mls/hr IVPB Q12H [facility] Last Admin: 11/09/17 07:01 Dose: 150 mls/hr Piperacillin Sod/Tazobactam Sod (Zosyn 4.5 Gm Iv Premix) 4.5 gm in 100 mls @ 100 mls/hr IVPB Q8H [facility] Last Admin: 11/09/17 05:44 Dose: 100 mls/hr Multivitamins/Minerals (Therapeutic-M Tab) 1 tab PO 0800 [facility] Last Admin: 11/09/17 09:50 Dose: 1 tab - Labs Labs: 12/11/17 07:19 11/09/17 07:19 PT 12.1 SECONDS (9.7-12.2) 11/04/17 16:39 INR 1.1 11/04/17 16:39 APTT 28 SECONDS (21-34) 11/04/17 16:39 - Constitutional Appears: Non-toxic, Chronically Ill - Head Exam Head Exam: NORMOCEPHALIC - Eye Exam Eye Exam: PERRL - ENT Exam ENT Exam: Mucous Membranes Dry - Neck Exam Neck Exam: absent: Lymphadenopathy - Respiratory Exam Respiratory Exam: Decreased Breath Sounds - Cardiovascular Exam Cardiovascular Exam: REGULAR RHYTHM - GI/Abdominal Exam GI & Abdominal Exam: Distended - Rectal Exam Rectal Exam: Deferred Assessment and Plan - Assessment and Plan (Free Text) Plan: cont iv rx 14 days
--- NOTE | 2017-11-09 22:17 | CP.PCM.PN ---
Subjective - Date & Time of Evaluation Date of Evaluation: 11/09/17 Time of Evaluation: 19:18 - Subjective Subjective: Pt seen and evaluated, afebrile, dec wbc, less short of breath, feels better Objective - Vital Signs/Intake and Output Vital Signs (last 24 hours): Temp Pulse Resp BP Pulse Ox 98.0 F 74 20 120/82 98 11/09/17 15:07 11/09/17 15:07 11/09/17 15:07 11/09/17 15:07 11/09/17 15:07 Intake and Output: 11/09/17 11/10/17 18:59 06:59 Intake Total 700 Output Total 1050 Balance -350 - Medications Medications: Current Medications Acetaminophen (Tylenol 325mg Tab) 650 mg PO Q6 PRN PRN Reason: Fever >100.4 F Last Admin: 11/05/17 08:04 Dose: 650 mg Amlodipine Besylate (Norvasc) 5 mg PO DAILY [facility] Last Admin: 11/09/17 09:50 Dose: 5 mg Clonazepam (Klonopin) 0.5 mg PO BID PRO Last Admin: 11/09/17 20:18 Dose: 0.5 mg Clonidine HCl (Catapres) 0.1 mg PO HS [facility] Last Admin: 11/08/17 21:15 Dose: 0.1 mg Docusate Sodium (Colace) 100 mg PO TID PRO Last Admin: 11/09/17 20:18 Dose: 100 mg Finasteride (Proscar) 5 mg PO DAILY [facility] Last Admin: 11/09/17 09:50 Dose: 5 mg Hydroxyzine HCl (Atarax) 25 mg PO DAILY [facility] Last Admin: 11/09/17 09:50 Dose: 25 mg Piperacillin Sod/Tazobactam Sod (Zosyn 4.5 Gm Iv Premix) 4.5 gm in 100 mls @ 100 mls/hr IVPB Q8H [facility] Last Admin: 11/09/17 20:44 Dose: 100 mls/hr Amikacin Sulfate 500 mg/ (Sodium Chloride) 152 mls @ 250 mls/hr IVPB Q24H [facility] Multivitamins/Minerals (Therapeutic-M Tab) 1 tab PO 0800 [facility] Last Admin: 11/09/17 09:50 Dose: 1 tab - Labs Labs: 11/09/17 07:19 11/09/17 07:19 PT 12.1 SECONDS (9.7-12.2) 11/04/17 16:39 INR 1.1 11/04/17 16:39 APTT 28 SECONDS (21-34) 11/04/17 16:39 - Constitutional Appears: No Acute Distress - Head Exam Head Exam: ATRAUMATIC, NORMAL INSPECTION, NORMOCEPHALIC - Eye Exam Eye Exam: EOMI, Normal appearance, PERRL Pupil Exam: NORMAL ACCOMODATION, PERRL - Respiratory Exam Respiratory Exam: Decreased Breath Sounds - Cardiovascular Exam Cardiovascular Exam: REGULAR RHYTHM, +S1, +S2. absent: Murmur - GI/Abdominal Exam GI & Abdominal Exam: Soft, Normal Bowel Sounds. absent: Tenderness - Exam Additional comments: enlarged prostrate - Neurological Exam Neurological Exam: Alert, Awake, Oriented x3 Assessment and Plan (1) BPH (benign prostatic hyperplasia) Status: Acute (2) Postoperative fever Status: Resolved (3) S/P TURP Status: Acute (4) UTI (urinary tract infection) due to Enterococcus Status: Acute
--- NOTE | 2017-11-09 22:53 | PCM.URO ---
Urology Progress Note - General General: No Complaints, Tolerating Diet - Subjective Abdominal Pain: No Flank Pain: No Nausea: No Vomiting: No Hematuria: No Dsypnea: No Chest Pain: No Fever & Chills: No Other: Had BM - Objective Lab Studies: Reviewed Lab Results Last 24 Hours: Laboratory Results - last 24 hr 11/09/17 11/09/17 07:19 07:19 WBC 8.8 RBC 3.83 L Hgb 10.3 L Hct 30.2 L MCV 79.0 L MCH 26.8 L MCHC 34.0 RDW 15.5 H Plt Count 240 MPV 9.0 Neut % (Auto) 68.8 Lymph % (Auto) 17.[address] [place] % (Auto) 6.0 Eos % (Auto) 6.4 H Baso % (Auto) 1.4 Neut # 6.1 Lymph # 1.5 [place] # 0.5 Eos # 0.6 Baso # 0.1 Sodium 137 Potassium 4.0 Chloride 105 Carbon Dioxide 27 Anion Gap 9 L BUN 14 Creatinine 1.6 H Est GFR ( Amer) 52 Est GFR (Non-Af Amer) 43 Random Glucose 92 Calcium 8.6 Total Bilirubin 0.5 AST 32 ALT 76 H D Alkaline Phosphatase 133 H D Total Protein 6.9 Albumin 3.0 L Globulin 3.9 Albumin/Globulin Ratio 0.8 L Intake & Output: Intake & Output 11/09/17 11/09/17 11/10/17 06:59 18:59 06:59 Intake Total 940 700 Output Total 1220 1050 500 Balance -280 -350 -500 Intake: Intake, IV Amount 700 100 Left Wrist 700 100 Oral 240 600 Output: Urine 1220 1050 500 3-way Urethral 1220 1050 500 Vital Signs: Vital Signs - 24 hr 11/08/17 11/09/17 11/09/17 23:55 01:00 04:15 Temperature 98.4 F 98.5 F Pulse Rate 76 74 71 Respiratory 20 20 Rate Blood Pressure 96/65 L 110/77 O2 Sat by Pulse 95 95 Oximetry 11/09/17 11/09/17 11/09/17 08:00 09:49 12:00 Temperature 98.2 F Pulse Rate 77 73 74 Respiratory 20 Rate Blood Pressure 125/85 124/82 O2 Sat by Pulse 94 L Oximetry 11/09/17 15:07 Temperature 98.0 F Pulse Rate 74 Respiratory 20 Rate Blood Pressure 120/82 O2 Sat by Pulse 98 Oximetry - Physical Exam Abdominal Exam: Soft, Non-Tender, Non-Distended Bowel Sounds: Normal Back: No CVA Tenderness Genitalia: Without Inflammation Urinary Catheter Draining Well: Yes Urine Color: Clear, Yellow Extremities: Normal: Bilateral - Plan Catheter Care: Yes Ambulation - Out of Bed: Yes Intake & Output: Yes Additional Information: Imp: UTI. Bacteremia. Improved overall. P: trial of voiding t/f. Antibiotic rx as per ID technical sales consultant. Discussed w pt. - Date & Time of Note Date: 11/09/17 Time: 11:05
[2017-11-10] MEDS: Piperacill/Tazo 4.5gm in Dex 4.5 GM/100 ML BAG IVPB SCH ×3 (06:12→21:43)
[2017-11-10] MEDS ORDERED: Amikacin Sulfate 500 MG in Sodium Chloride 0.9% 250 ML IVPB SCH (07:00)
[2017-11-10] MEDS: Multivitamin With Minerals Tab PO SCH (08:33)
[2017-11-10] MEDS: AMIKACIN SULFATE IVPB SCH (10:18)
[2017-11-10] MEDS: SODIUM CHLORIDE 0.9% IVPB SCH (10:18)
--- NOTE | 2017-11-10 10:57 | US ---
PROCEDURE: Ultrasound of the Kidneys HISTORY: UTI COMPARISON: None available. TECHNIQUE: Sonogram of the kidneys. FINDINGS: RIGHT KIDNEY: Measures: 11.9 x 4.7 x 5.8 cm. Mild fullness of the right renal collecting system and proximal ureter. No obstructing calculus identified. The right renal vein appears dilated measuring approximately 1.8 cm. LEFT KIDNEY: Measures: 9.9 x 4.5 x 4.6 cm. Mild fullness of the left renal collecting system. No obstructing calculus identified. OTHER FINDINGS: Bladder wall appears thickened. IMPRESSION: Right renal vein appears dilated measuring approximately 1.8 cm. Mild fullness of the bilateral renal collecting systems. Thick-walled urinary bladder. Recommend correlation with urinalysis.
[2017-11-10 11:37] LABS: HEMATOCRIT 36.4 % (35.0-51.0); MEAN CELL VOLUME 79.8 fL (80.0-94.0); MEAN CORPUSCULAR HEMOGLOBIN 25.9 pg (27.0-31.0); MEAN CORPUSCULAR HGB CONC 32.5 g/dL (33.0-37.0); MEAN PLATELET VOLUME 8.9 fL (7.2-11.7); RED CELL DISTRIBUTION WIDTH 15.5 % (11.5-14.5)
[2017-11-10 11:51] LABS: ALB/GLOB RATIO 0.8 (1.0-2.1); BILIRUBIN,TOTAL 0.4 mg/dL (0.2-1.3); CALCIUM 8.7 mg/dl (8.6-10.4); POTASSIUM 3.6 mmol/L (3.6-5.2); TOTAL PROTEIN 7.9 g/dL (6.3-8.3)
--- NOTE | 2017-11-10 21:59 | CP.PCM.PN ---
Subjective - Date & Time of Evaluation Date of Evaluation: 11/10/17 Time of Evaluation: 21:00 - Subjective Subjective: Pt seen and examined at bedside, post op no changed, he is afberile and still have foleys in place Objective - Vital Signs/Intake and Output Vital Signs (last 24 hours): Temp Pulse Resp BP Pulse Ox 98.0 F 83 20 116/81 97 11/10/17 15:35 11/10/17 15:35 11/10/17 15:35 11/10/17 15:35 11/10/17 15:35 Intake and Output: 11/10/17 11/11/17 18:59 06:59 Intake Total 500 Output Total 600 Balance -100 - Medications Medications: Current Medications Acetaminophen (Tylenol 325mg Tab) 650 mg PO Q6 PRN PRN Reason: Fever >100.4 F Last Admin: 11/05/17 08:04 Dose: 650 mg Amlodipine Besylate (Norvasc) 5 mg PO DAILY [facility] Last Admin: 11/10/17 10:19 Dose: 5 mg Clonazepam (Klonopin) 0.5 mg PO BID [facility] Last Admin: 11/10/17 18:06 Dose: 0.5 mg Clonidine HCl (Catapres) 0.1 mg PO HS [facility] Last Admin: 11/10/17 21:43 Dose: 0.1 mg Docusate Sodium (Colace) 100 mg PO TID [facility] Last Admin: 11/10/17 18:06 Dose: 100 mg Finasteride (Proscar) 5 mg PO DAILY [facility] Last Admin: 11/10/17 10:19 Dose: 5 mg Hydroxyzine HCl (Atarax) 25 mg PO DAILY [facility] Last Admin: 11/10/17 10:20 Dose: 25 mg Piperacillin Sod/Tazobactam Sod (Zosyn 4.5 Gm Iv Premix) 4.5 gm in 100 mls @ 100 mls/hr IVPB Q8H [facility] Last Admin: 11/10/17 21:43 Dose: 100 mls/hr Amikacin Sulfate 500 mg/ (Sodium Chloride) 152 mls @ 250 mls/hr IVPB Q24H [facility] Last Admin: 11/10/17 10:18 Dose: 250 mls/hr Multivitamins/Minerals (Therapeutic-M Tab) 1 tab PO 0800 [facility] Last Admin: 11/10/17 08:33 Dose: 1 tab - Labs Labs: 11/10/17 11:31 11/10/17 11:31 PT 12.1 SECONDS (9.7-12.2) 11/04/17 16:39 INR 1.1 11/04/17 16:39 APTT 28 SECONDS (21-34) 11/04/17 16:39 - Constitutional Appears: No Acute Distress - Head Exam Head Exam: ATRAUMATIC, NORMAL INSPECTION, NORMOCEPHALIC - Eye Exam Eye Exam: EOMI, Normal appearance, PERRL Pupil Exam: NORMAL ACCOMODATION, PERRL - Respiratory Exam Respiratory Exam: Clear to Ausculation Bilateral, NORMAL BREATHING PATTERN - Cardiovascular Exam Cardiovascular Exam: REGULAR RHYTHM, +S1, +S2. absent: Murmur - GI/Abdominal Exam GI & Abdominal Exam: Soft, Normal Bowel Sounds. absent: Tenderness - Rectal Exam Rectal Exam: Deferred Assessment and Plan (1) BPH (benign prostatic hyperplasia) Status: Acute (2) Postoperative fever Status: Resolved (3) S/P TURP Status: Acute (4) UTI (urinary tract infection) due to Enterococcus Status: Acute
[2017-11-11] MEDS: Piperacill/Tazo 4.5gm in Dex 4.5 GM/100 ML BAG IVPB SCH ×3 (05:43→22:24)
[2017-11-11] MEDS: SODIUM CHLORIDE 0.9% IVPB SCH (07:37)
[2017-11-11] MEDS: AMIKACIN SULFATE IVPB SCH (07:37)
[2017-11-11] MEDS: Multivitamin With Minerals Tab PO SCH (08:21)
--- NOTE | 2017-11-11 16:48 | CP.PCM.PN ---
Subjective - Date & Time of Evaluation Date of Evaluation: 11/11/17 Time of Evaluation: 16:48 - Subjective Subjective: PATIENT WAS ADMITTED FOR BPH; BRANTLEY REMOVED 11/10/17 AND PATIENT VOIDING WITH NO DIFFICULTLY; DENIES CHEST PAIN SOB; BURNIG SENSATION WHEN URINATE; A PICC LINE WAS INSERTED BY PICC LINE NURSE AND CXR CONFIRM; NO SIGN OF DISTRESS NOTED Objective - Vital Signs/Intake and Output Vital Signs (last 24 hours): Temp Pulse Resp BP Pulse Ox 98.2 F 74 20 140/88 95 11/11/17 08:04 11/11/17 08:04 11/11/17 08:04 11/11/17 08:04 11/11/17 08:04 Intake and Output: 11/11/17 11/11/17 06:59 18:59 Intake Total 1440 Output Total 1350 Balance 90 - Medications Medications: Current Medications Acetaminophen (Tylenol 325mg Tab) 650 mg PO Q6 PRN PRN Reason: Fever >100.4 F Last Admin: 11/05/17 08:04 Dose: 650 mg Amlodipine Besylate (Norvasc) 5 mg PO DAILY [facility] Last Admin: 11/11/17 10:52 Dose: 5 mg Clonazepam (Klonopin) 0.5 mg PO BID [facility] Last Admin: 11/11/17 10:52 Dose: 0.5 mg Clonidine HCl (Catapres) 0.1 mg PO HS [facility] Last Admin: 11/10/17 21:43 Dose: 0.1 mg Docusate Sodium (Colace) 100 mg PO TID [facility] Last Admin: 11/11/17 13:09 Dose: 100 mg Finasteride (Proscar) 5 mg PO DAILY [facility] Last Admin: 11/11/17 10:52 Dose: 5 mg Hydroxyzine HCl (Atarax) 25 mg PO DAILY [facility] Last Admin: 11/11/17 10:56 Dose: 25 mg Piperacillin Sod/Tazobactam Sod (Zosyn 4.5 Gm Iv Premix) 4.5 gm in 100 mls @ 100 mls/hr IVPB Q8H [facility] Last Admin: 11/11/17 12:56 Dose: 100 mls/hr Amikacin Sulfate 500 mg/ (Sodium Chloride) 152 mls @ 250 mls/hr IVPB Q24H [facility] Last Admin: 12/13/17 07:37 Dose: 250 mls/hr Multivitamins/Minerals (Therapeutic-M Tab) 1 tab PO 0800 [facility] Last Admin: 11/11/17 08:21 Dose: 1 tab - Labs Labs: 11/10/17 11:31 11/10/17 11:31 PT 12.1 SECONDS (9.7-12.2) 11/04/17 16:39 INR 1.1 11/04/17 16:39 APTT 28 SECONDS (21-34) 11/04/17 16:39 Assessment and Plan - Assessment and Plan (Free Text) Assessment: PLACE UNDER THE SERVICE OF DR. WHITLEY WHILE AT [facility]---CALL HIM UPON ARRIVAL TO FACILITY FOR ADMITTING ORDERS AND BED ASSIGNMENT. CONTINUE MEDICATIONS PER THE MED REC FORM---CHANGES CAN BE MADE BY DR. WHITLEY NEW RX GIVEN: AMIKACIN 500 MG Q 24 H IV FOR 14 DAYS ZOSYN 4.5 G Q8H IV FOR 14 DAYS PHYSICAL THERAPY TOLERATED. PICCL LINE CARE PER FACILITY PROTOCOL FOR FURTHER ORDERS OR CONCERNS, CONTACT DR. WHITLEY. PT TO F/U WITH DR. VILLANUEVA AND DR. ROMERO AFTER DISCHARGE FROM [facility].
--- NOTE | 2017-11-11 17:08 | RAD ---
PROCEDURE: CHEST RADIOGRAPH, 1 VIEW HISTORY: verify right PICC COMPARISON: Comparison made with chest radiograph dated 11/05/2017 FINDINGS: Right-sided PICC line with tip in the SVC. LUNGS: Mild biapical pleural thickening and what appears represent some minor fibrosis/ changes in both lung apices. There is also minor linear atelectasis/ scarring in the left lung base as well. PLEURA: No pneumothorax or pleural fluid seen. CARDIOVASCULAR: Heart size normal. Aorta is slightly ectatic and uncoiled. OSSEOUS STRUCTURES: No significant abnormalities. VISUALIZED UPPER ABDOMEN: Normal. OTHER FINDINGS: None. IMPRESSION: In situ right sided PICC line as above. No acute consolidation. Mild biapical pleural thickening with mild linear atelectasis/ scarring in both lung apices and left lung base.
--- NOTE | 2017-11-11 17:22 | CP.PCM.PN ---
Subjective - Date & Time of Evaluation Date of Evaluation: 11/11/17 Time of Evaluation: 06:00 - Subjective Subjective: IMPROVING IV RX PLANNED FOR OUT PT TO COMPLETE 14 DAYS Objective - Vital Signs/Intake and Output Vital Signs (last 24 hours): Temp Pulse Resp BP Pulse Ox 98.2 F 74 20 140/88 95 11/11/17 08:04 11/11/17 08:04 11/11/17 08:04 11/11/17 08:04 11/11/17 08:04 Intake and Output: 11/11/17 11/11/17 06:59 18:59 Intake Total 1440 Output Total 1350 Balance 90 - Medications Medications: Current Medications Acetaminophen (Tylenol 325mg Tab) 650 mg PO Q6 PRN PRN Reason: Fever >100.4 F Last Admin: 11/05/17 08:04 Dose: 650 mg Amlodipine Besylate (Norvasc) 5 mg PO DAILY [facility] Last Admin: 11/11/17 10:52 Dose: 5 mg Clonazepam (Klonopin) 0.5 mg PO BID [facility] Last Admin: 11/11/17 10:52 Dose: 0.5 mg Clonidine HCl (Catapres) 0.1 mg PO HS [facility] Last Admin: 11/10/17 21:43 Dose: 0.1 mg Docusate Sodium (Colace) 100 mg PO TID [facility] Last Admin: 11/11/17 13:09 Dose: 100 mg Finasteride (Proscar) 5 mg PO DAILY [facility] Last Admin: 11/11/17 10:52 Dose: 5 mg Hydroxyzine HCl (Atarax) 25 mg PO DAILY [facility] Last Admin: 11/11/17 10:56 Dose: 25 mg Piperacillin Sod/Tazobactam Sod (Zosyn 4.5 Gm Iv Premix) 4.5 gm in 100 mls @ 100 mls/hr IVPB Q8H [facility] Last Admin: 11/11/17 12:56 Dose: 100 mls/hr Amikacin Sulfate 500 mg/ (Sodium Chloride) 152 mls @ 250 mls/hr IVPB Q24H [facility] Last Admin: 11/11/17 07:37 Dose: 250 mls/hr Multivitamins/Minerals (Therapeutic-M Tab) 1 tab PO 0800 [facility] Last Admin: 11/11/17 08:21 Dose: 1 tab - Labs Labs: 11/10/17 11:31 11/10/17 11:31 PT 12.1 SECONDS (9.7-12.2) 11/04/17 16:39 INR 1.1 11/04/17 16:39 APTT 28 SECONDS (21-34) 11/04/17 16:39 - Constitutional Appears: Non-toxic, Chronically Ill - Head Exam Head Exam: NORMOCEPHALIC - Eye Exam Eye Exam: PERRL - ENT Exam ENT Exam: Mucous Membranes Dry - Neck Exam Neck Exam: absent: Lymphadenopathy - Respiratory Exam Respiratory Exam: Decreased Breath Sounds - Cardiovascular Exam Cardiovascular Exam: REGULAR RHYTHM - GI/Abdominal Exam GI & Abdominal Exam: Distended, Soft - Rectal Exam Rectal Exam: Deferred Assessment and Plan - Assessment and Plan (Free Text) Plan: TO COMPLETE 14 DAYS IV RX
--- NOTE | 2017-11-11 23:37 | CP.PCM.PN ---
Subjective - Date & Time of Evaluation Date of Evaluation: 11/11/17 Time of Evaluation: 18:15 - Subjective Subjective: Pt is doing well, is for Iv antibiotics continues in [facility] after transfer Objective - Vital Signs/Intake and Output Vital Signs (last 24 hours): Temp Pulse Resp BP Pulse Ox 97.5 F L 89 20 135/89 95 11/11/17 17:00 11/11/17 17:30 11/11/17 17:00 11/11/17 17:00 11/11/17 17:00 - Medications Medications: Current Medications Acetaminophen (Tylenol 325mg Tab) 650 mg PO Q6 PRN PRN Reason: Fever >100.4 F Last Admin: 11/05/17 08:04 Dose: 650 mg Amlodipine Besylate (Norvasc) 5 mg PO DAILY [facility] Last Admin: 11/11/17 10:52 Dose: 5 mg Clonazepam (Klonopin) 0.5 mg PO BID [facility] Last Admin: 11/11/17 18:29 Dose: 0.5 mg Clonidine HCl (Catapres) 0.1 mg PO HS [facility] Last Admin: 11/11/17 22:24 Dose: Not Given Docusate Sodium (Colace) 100 mg PO TID [facility] Last Admin: 11/11/17 18:29 Dose: 100 mg Finasteride (Proscar) 5 mg PO DAILY [facility] Last Admin: 11/11/17 10:52 Dose: 5 mg Hydroxyzine HCl (Atarax) 25 mg PO DAILY [facility] Last Admin: 11/11/17 10:56 Dose: 25 mg Piperacillin Sod/Tazobactam Sod (Zosyn 4.5 Gm Iv Premix) 4.5 gm in 100 mls @ 100 mls/hr IVPB Q8H [facility] Last Admin: 11/11/17 22:24 Dose: 100 mls/hr Amikacin Sulfate 500 mg/ (Sodium Chloride) 152 mls @ 250 mls/hr IVPB Q24H [facility] Last Admin: 11/11/17 07:37 Dose: 250 mls/hr Multivitamins/Minerals (Therapeutic-M Tab) 1 tab PO 0800 [facility] Last Admin: 11/11/17 08:21 Dose: 1 tab - Labs Labs: 11/10/17 11:31 11/10/17 11:31 PT 12.1 SECONDS (9.7-12.2) 11/04/17 16:39 INR 1.1 11/04/17 16:39 APTT 28 SECONDS (21-34) 11/04/17 16:39 - Constitutional Appears: No Acute Distress - Head Exam Head Exam: ATRAUMATIC, NORMAL INSPECTION, NORMOCEPHALIC - Eye Exam Eye Exam: EOMI, Normal appearance, PERRL Pupil Exam: NORMAL ACCOMODATION, PERRL - Respiratory Exam Respiratory Exam: Clear to Ausculation Bilateral, NORMAL BREATHING PATTERN - Cardiovascular Exam Cardiovascular Exam: REGULAR RHYTHM, +S1, +S2. absent: Murmur - Neurological Exam Neurological Exam: Alert, Awake, CN II-XII Intact, Normal Gait, Oriented x3 Assessment and Plan (1) BPH (benign prostatic hyperplasia) Status: Acute (2) Postoperative fever Status: Resolved (3) S/P TURP Status: Acute (4) UTI (urinary tract infection) due to Enterococcus Status: Acute
[2017-11-12] MEDS: Piperacill/Tazo 4.5gm in Dex 4.5 GM/100 ML BAG IVPB SCH ×2 (06:48→13:28)
[2017-11-12] MEDS: SODIUM CHLORIDE 0.9% IVPB SCH (06:49)
[2017-11-12] MEDS: AMIKACIN SULFATE IVPB SCH (06:49)
[2017-11-12] MEDS: Multivitamin With Minerals Tab PO SCH (08:50)
[2017-11-12 16:35] VITALS: PULSE 89
[2017-11-12 17:10] VITALS: BP 137/88; TEMP 97.9; O2SAT 96
--- NOTE | 2017-11-12 22:59 | CP.PCM.DIS ---
Provider - Provider Date of Admission: 11/04/17 07:00 Attending physician: Maria Ines Cifuentes MD Time Spent in preparation of Discharge (in minutes): 56 Diagnosis - Discharge Diagnosis (1) BPH (benign prostatic hyperplasia) Status: Acute (2) Postoperative fever Status: Resolved (3) S/P TURP Status: Acute (4) UTI (urinary tract infection) due to Enterococcus Status: Acute Hospital Course - Lab Results Lab Results: Micro Results 11/07/17 07:40 Blood-Venous Blood Culture - Final NO GROWTH AFTER 5 DAYS 11/07/17 07:40 Blood-Venous Gram Stain - Final TEST NOT PERFORMED 11/07/17 07:02 Blood-Venous Blood Culture - Final NO GROWTH AFTER 5 DAYS 11/07/17 07:02 Blood-Venous Gram Stain - Final TEST NOT PERFORMED 11/10/17 10:30 Urine,[place] Urine Culture - Final No Growth (<1,000 CFU/ML) 11/05/17 11:07 Blood S.aureus & Coag-Neg Staph PNA FISH - Final 11/05/17 11:07 Blood Blood Culture - Final Enterococcus Faecium Pseudomonas Aeruginosa 11/05/17 11:07 Blood Gram Stain - Final 11/04/17 16:00 Blood-Venous Blood Culture - Final NO GROWTH AFTER 5 DAYS 11/04/17 16:00 Blood-Venous Gram Stain - Final TEST NOT PERFORMED 11/04/17 17:00 Blood-Venous Blood Culture - Final NO GROWTH AFTER 5 DAYS 11/04/17 17:00 Blood-Venous Gram Stain - Final TEST NOT PERFORMED 11/05/17 08:19 Blood Blood Culture - Final Enterococcus Faecium Pseudomonas Aeruginosa 11/05/17 08:19 Blood Gram Stain - Final 11/06/17 Unknown Urine,[place] Urine Culture - Final Gram Negative Bobby 11/04/17 15:27 Urine,Catheterized Urine Culture - Final Pseudomonas Aeruginosa Most Recent Lab Values WBC 11.0 K/uL (4.8-10.8) H 11/10/17 11:31 RBC 4.56 Mil/uL (4.40-5.90) 11/10/17 11:31 Hgb 11.8 g/dL (12.0-18.0) L 11/10/17 11:31 Hct 36.4 % (35.0-51.0) 11/10/17 11:31 MCV 79.8 fL (80.0-94.0) L 11/10/17 11:31 MCH 25.9 pg (27.0-31.0) L 11/10/17 11:31 MCHC 32.5 g/dL (33.0-37.0) L 11/10/17 11:31 RDW 15.5 % (11.5-14.5) H 11/10/17 11:31 Plt Count 303 K/uL (130-400) 11/10/17 11:31 MPV 8.9 fL (7.2-11.7) 11/10/17 11:31 Neut % (Auto) 68.8 % (50.0-75.0) 11/09/17 07:19 Lymph % (Auto) 17.4 % (20.0-40.0) L 11/09/17 07:19 Whitman % (Auto) 6.0 % (0.0-10.0) 11/09/17 07:19 Eos % (Auto) 6.4 % (0.0-4.0) H 11/09/17 07:19 Baso % (Auto) 1.4 % (0.0-2.0) 11/09/17 07:19 Neut # 6.1 K/uL (1.8-7.0) 11/09/17 07:19 Lymph # 1.5 K/uL (1.0-4.3) 11/09/17 07:19 Whitman # 0.5 K/uL (0.0-0.8) 11/09/17 07:19 Eos # 0.6 K/uL (0.0-0.7) 11/09/17 07:19 Baso # 0.1 K/uL (0.0-0.2) 11/09/17 07:19 Neutrophils % (Manual) 86 % (50-75) H 11/07/17 07:02 Band Neutrophils % 1 % (0-2) 11/07/17 07:02 Lymphocytes % (Manual) 6 % (20-40) L 11/07/17 07:02 Monocytes % (Manual) 5 % (0-10) 11/07/17 07:02 Eosinophils % (Manual) 2 % (0-4) 11/07/17 07:02 Platelet Estimate Normal (NORMAL) 11/07/17 07:02 Large Platelets Present 11/07/17 07:02 Polychromasia Slight 11/07/17 07:02 Hypochromasia (manual) Slight 11/06/17 07:51 Poikilocytosis (manual Slight 11/07/17 07:02 Anisocytosis (manual) Slight 11/07/17 07:02 Microcytosis (manual) Slight 11/04/17 16:39 Tear Drop Cells Slight 11/04/17 16:39 Ovalocytes Slight 11/07/17 07:02 Ionia Cells Slight 11/07/17 07:02 PT 12.1 SECONDS (9.7-12.2) 11/04/17 16:39 INR 1.1 11/04/17 16:39 APTT 28 SECONDS (21-34) 11/04/17 16:39 Puncture Site Venous 11/04/17 19:29 pCO2 32 mm/Hg (35-45) L 11/04/17 19:29 pO2 19 mm/Hg (30-55) L 11/05/17 12:14 HCO3 23.6 mmol/L (21-28) 11/04/17 19:29 ABG pH 7.44 (7.35-7.45) 11/04/17 19:29 ABG Total CO2 22.7 mmol/L (22-28) 11/04/17 19:29 ABG O2 Saturation 97.6 % (95-98) 11/04/17 19:29 ABG Base Excess -1.6 mmol/L (-2.0-3.0) 11/04/17 19:29 Bran Test Na 11/04/17 19:29 ABG Potassium 3.5 mmol/L (3.6-5.2) L 11/04/17 19:29 VBG pH 7.35 (7.32-7.43) 11/05/17 12:14 VBG pCO2 41 mmHg (40-60) 11/05/17 12:14 VBG HCO3 20.7 mmol/L 11/05/17 12:14 VBG Total CO2 23.9 mmol/L (22-28) 11/05/17 12:14 VBG O2 Sat (Calc) 29.3 % (40-65) L 11/05/17 12:14 VBG Base Excess -2.9 mmol/L (0.0-2.0) L 11/05/17 12:14 VBG Potassium 4.3 mmol/L (3.6-5.2) 11/05/17 12:14 Sodium 136.0 mmol/l (132-148) 11/05/17 12:14 Chloride 110.0 mmol/L (98-107) H 11/05/17 12:14 Glucose 108 mg/dl (75-110) 11/05/17 12:14 Lactate 2.2 mmol/L (0.7-2.1) H 11/05/17 12:14 Sodium 137 mmol/L (132-148) 11/10/17 11:31 Potassium 3.6 mmol/L (3.6-5.2) 11/10/17 11:31 Chloride 104 mmol/L (98-107) 11/10/17 11:31 Carbon Dioxide 29 mmol/L (22-30) 11/10/17 11:31 Anion Gap 8 (10-20) L 11/10/17 11:31 BUN 12 mg/dL (9-20) 11/10/17 11:31 Creatinine 1.6 mg/dL (0.8-1.5) H 11/10/17 11:31 Est GFR ( Amer) 52 11/10/17 11:31 Est GFR (Non-Af Amer) 43 11/10/17 11:31 Random Glucose 92 mg/dL (75-110) 11/10/17 11:31 Lactic Acid 3.7 mmol/L (0.7-2.1) H 11/05/17 08:32 Calcium 8.7 mg/dl (8.6-10.4) 11/10/17 11:31 Phosphorus 3.2 mg/dL (2.5-4.5) 11/04/17 16:39 Magnesium 1.8 mg/dL (1.6-2.3) 11/05/17 07:14 Total Bilirubin 0.4 mg/dL (0.2-1.3) 11/10/17 11:31 AST 30 U/L (17-59) 11/10/17 11:31 ALT 70 U/L (21-72) 11/10/17 11:31 Alkaline Phosphatase 131 U/L (38-126) H 11/10/17 11:31 Total Protein 7.9 g/dL (6.3-8.3) 11/10/17 11:31 Albumin 3.5 g/dL (3.5-5.0) 11/10/17 11:31 Globulin 4.4 gm/dL (2.2-3.9) H 11/10/17 11:31 Albumin/Globulin Ratio 0.8 (1.0-2.1) L 11/10/17 11:31 Procalcitonin 0.15 NG/ML (0.19-0.49) L 11/04/17 16:39 Arterial Blood Potassium 3.5 mmol/L (3.6-5.2) L 11/04/17 19:29 Venous Blood Potassium 4.3 mmol/L (3.6-5.2) 11/05/17 12:14 Urine Color Red (YELLOW) 11/06/17 22:45 Urine Clarity Hazy (Clear) 11/06/17 22:45 Urine pH 7.0 (5.0-8.0) 11/06/17 22:45 Ur Specific Blunt 1.010 (1.003-1.030) 11/06/17 22:45 Urine Protein 2+ mg/dL (NEGATIVE) H 11/06/17 22:45 Urine Glucose (UA) Normal mg/dL (Normal) 11/06/17 22:45 Urine Ketones Negative mg/dL (NEGATIVE) 11/06/17 22:45 Urine Blood 3+ (NEGATIVE) H 11/06/17 22:45 Urine Nitrate Negative (NEGATIVE) 11/06/17 22:45 Urine Bilirubin Negative (NEGATIVE) 11/06/17 22:45 Urine Urobilinogen Normal mg/dL (0.2-1.0) 11/06/17 22:45 Ur Leukocyte Esterase 2+ Wes/uL (Negative) H 11/06/17 22:45 Urine WBC (Auto) 105 /hpf (0-5) H 11/06/17 22:45 Urine RBC (Auto) 2340 /hpf (0-3) H 11/06/17 22:45 Urine Bacteria Mod (<OCC) H 11/06/17 22:45 Amikacin Trough <2.5 mg/L (4.0-8.0) L 11/10/17 07:41 Random Vancomycin 8.58 ug/mL 11/08/17 09:17 Hepatitis A IgM Ab Negative (NEGATIVE) 11/07/17 07:02 Hep Bs Antigen Negative (NEGATIVE) 11/07/17 07:02 Hep B Core IgM Ab Negative (NEGATIVE) 11/07/17 07:02 Hepatitis C Antibody Negative (NEGATIVE) 11/07/17 07:02 - Hospital Course Hospital Course: Pt is for discharge today, pt is afebrile, on antibiotics, urine is improving, obstructive uropathy s/p TUrp, Pt is for transfer to [facility] Discharge Exam - Head Exam Head Exam: ATRAUMATIC, NORMAL INSPECTION, NORMOCEPHALIC - Eye Exam Eye Exam: EOMI, Normal appearance, PERRL Pupil Exam: NORMAL ACCOMODATION, PERRL - ENT Exam ENT Exam: Mucous Membranes Moist - Respiratory Exam Respiratory Exam: Clear to PA & Lateral, NORMAL BREATHING PATTERN - Cardiovascular Exam Cardiovascular Exam: REGULAR RHYTHM, +S1, +S2 - GI/Abdominal Exam GI & Abdominal Exam: Normal Bowel Sounds - Psychiatric Exam Psychiatric exam: Normal Affect, Normal Mood - Skin Skin Exam: Dry, Intact, Normal Color, Warm Discharge Plan - Discharge Medications Prescriptions: Piperacill/Tazo 4.5gm in Dex [Zosyn 4.5 Gm IV Premix] 4.5 gm IVPB Q8H 14 Days bag - Follow Up Plan Condition: GOOD Disposition: OTHER INSTITUTION Instructions: Benign Prostatic Hypertrophy (DC), Transurethral Prostatectomy ( DC), Urinary Tract Infection in Men (DC), Heart Healthy Diet (DC), Sepsis (GEN) Additional Instructions: PLACE UNDER THE SERVICE OF DR. OROZCO WHILE AT [facility]---CALL HIM UPON ARRIVAL TO FACILITY FOR ADMITTING ORDERS AND BED ASSIGNMENT. CONTINUE MEDICATIONS PER THE MED REC FORM---CHANGES CAN BE MADE BY DR. OROZCO NEW RX GIVEN: AMIKACIN 500 MG Q 24 H IV FOR 14 DAYS ZOSYN 4.5 G Q8H IV FOR 14 DAYS PHYSICAL THERAPY TOLERATED. PICC LINE CARE PER FACILITY PROTOCOL FOR FURTHER ORDERS OR CONCERNS, CONTACT DR. OROZCO. PT TO F/U WITH DR. VILLANUEVA AND DR. CIFUENTES AFTER DISCHARGE FROM [facility]. Referrals: Hebert Orozco MD [Staff Provider] - Maria Ines Cifuentes MD [Staff Provider] -
--- NOTE | 2017-11-13 11:28 | PCM.URO ---
Urology Progress Note - General General: No Complaints, Tolerating Diet - Subjective Abdominal Pain: No Flank Pain: No Nausea: No Vomiting: No Voiding Well: Yes Hematuria: No Good Stream: Yes Dsypnea: No Chest Pain: No Fever & Chills: No - Objective Intake & Output: Intake & Output 11/12/17 11/13/17 11/13/17 18:59 06:59 18:59 Intake Total 100 Output Total 450 Balance -350 Intake: Intake, IV Amount 100 Left Wrist 100 Output: Urine 450 Urine, Voided 450 Vital Signs: Vital Signs - 24 hr 11/12/17 11/12/17 15:30 16:34 Temperature 97.9 F Pulse Rate 79 89 Respiratory 20 Rate Blood Pressure 137/88 O2 Sat by Pulse 96 Oximetry - Physical Exam Abdominal Exam: Soft, Non-Tender, Non-Distended Back: No CVA Tenderness Genitalia: Without Inflammation Urine Color: Clear, Yellow Extremities: Normal: Bilateral - Plan Additional Information: IMP: Progressing well, after catheer removal. On IV antibiotics as per ID - Date & Time of Note Date: 11/11/17 Time: 13:10
== END 2017-11-12 16:45 | disposition designated cancer center or children's hospital (05) | DRG 854 ==
LOC: C.9S 07:00 → EDSTATUS 10:00 → C.6T 14:48
PROVIDERS: ADMIT Urology; ATTEND Urology
PROC: 0VT08ZZ Resection of Prostate, Via Natural or Artificial Opening Endoscopic (ICD-10-PCS; principal; 2017-11-04 10:00)
PROC: 0TP94DZ Removal of Intraluminal Device from Ureter, Percutaneous Endoscopic Approach (ICD-10-PCS; 2017-11-04 10:00)
DX: A41.9 Sepsis, unspecified organism (principal); N13.8 Other obstructive and reflux uropathy; N39.0 Urinary tract infection, site not specified; N40.1 Benign prostatic hyperplasia with lower urinary tract symptoms; B95.2 Enterococcus as the cause of diseases classified elsewhere; E78.00 Pure hypercholesterolemia, unspecified; I10 Essential (primary) hypertension; N32.89 Other specified disorders of bladder; R50.82 Postprocedural fever; R65.20 Severe sepsis without septic shock; Z87.891 Personal history of nicotine dependence

== ENCOUNTER 2018-01-06 14:31 | Emergency (ER) | payer MEDICARE ==
[2018-01-06 14:51] VITALS: RESP 20; TEMP 98.8; O2SAT 99
--- NOTE | 2018-01-06 15:16 | C.PDOC ---
History Of Present Illness 67 y/o M c PMHx BPH p/w urinary retention x 1 day. Patient states unable to urinate since last night. Also reports constipation. Reports suprapubic discomfort, went to PMD Ernesto's office where a bladder scan revealed urine. Patient called Dr. Cifuentes's office who instructed patient to come to ED. Patient denies fever, chills, chest pain, dyspnea, nausea, vomiting, diarrhea. Time Seen by Provider: 01/06/18 14:40 Chief Complaint (Nursing): Male Genitourinary Past Medical History Vital Signs: Last Vital Signs Temp 98.8 F 01/06/18 17:57 Pulse 105 H 01/06/18 17:57 Resp 20 01/06/18 17:57 BP 145/105 H 01/06/18 17:57 Pulse Ox 99 01/06/18 17:57 - Medical History PMH: Anemia, Anxiety, Colonic Polyps, HTN, Hypercholesterolemia Denies: Chronic Kidney Disease - [facility] Procedures REMOVAL OF INTRALUM DEV FROM URETER, PERC ENDO APPROACH (11/04/17) RESECTION OF PROSTATE, ENDO (11/04/17) Family History: States: No Known Family Hx - Social History Hx Alcohol Use: No Hx Substance Use: No Review Of Systems Except As Marked, All Systems Reviewed And Found Negative. Constitutional: Negative for: Fever Respiratory: Negative for: Shortness of Breath Physical Exam - Physical Exam Additional Physical Exam Comments: Constitutional: No acute distress Head: Normocephalic. Atraumatic. Eyes: PERRL. ENT: Moist mucous membranes. Neck: Supple. Cardiovascular: Regular rate. Radial pulse 2+ bilaterally. Chest: No tenderness. Respiratory: Clear to auscultation bilaterally. GI: Soft. Nontender.Suprapubic distention. Back: No CVA tenderness. Musculoskeletal: No tenderness or swelling of extremities. Skin: No rash. Neurologic: Alert, no focal deficit. ED Course And Treatment - Laboratory Results Result Diagrams: 01/06/18 15:23 01/06/18 15:23 O2 Sat by Pulse Oximetry: 99 Medical Decision Making Medical Decision Making: Over 1 L drained, changed to leg bag, urine culture sent, Dr. Maria Ines Cifuentes will see in his office, informed to call office tomorrow to make appointment and no antibiotics as of now. Disposition Discussed With Dr.: Maria Ines Cifuentes - Disposition Referrals: Maria Ines Cifuentes MD [Staff Provider] - Disposition: HOME/ ROUTINE Disposition Time: 15:55 Condition: STABLE Instructions: Urinary Retention in Men (ED) Forms: [facility] (Citizen Of [place]) - Clinical Impression Clinical Impression: Urinary retention
[2018-01-06 15:29] LABS: BASO % 1.7 % (0.0-2.0); EOS # 0.1 K/uL (0.0-0.7); EOS % 1.2 % (0.0-4.0); LYMPH # 1.3 K/uL (1.0-4.3); LYMPH % 20.3 % (20.0-40.0); MEAN CELL VOLUME 80.1 fL (80.0-94.0); MEAN CORPUSCULAR HEMOGLOBIN 26.2 pg (27.0-31.0); MEAN CORPUSCULAR HGB CONC 32.7 g/dL (33.0-37.0); MEAN PLATELET VOLUME 8.8 fL (7.2-11.7); MONO # 0.3 K/uL (0.0-0.8); MONO % 4.8 % (0.0-10.0); NEUT # 4.5 K/uL (1.8-7.0); RBC 4.6 Mil/uL (4.40-5.90); RED CELL DISTRIBUTION WIDTH 17.6 % (11.5-14.5); WHITE BLOOD COUNT 6.3 K/uL (4.8-10.8)
[2018-01-06 15:30] LABS: BASO # 0.1 K/uL (0.0-0.2)
[2018-01-06 15:36] LABS: URINE BACTERIA RARE (<OCC); URINE BILIRUBIN NEGATIVE (NEGATIVE); URINE BLOOD NEGATIVE (NEGATIVE); URINE CLARITY Clear (Clear); URINE COLOR Yellow (YELLOW); URINE GLUCOSE (UA) NORMAL (Normal); URINE LEUKOCYTE ESTERASE 1+ Leu/uL (Negative); URINE NITRATE NEGATIVE (NEGATIVE); URINE PROTEIN NEGATIVE (NEGATIVE); URINE UROBILINOGEN NORMAL mg/dL (0.2-1.0)
[2018-01-06 15:40] LABS: ALB/GLOB RATIO 1.1 (1.0-2.1); ALBUMIN 4.4 g/dL (3.5-5.0); CALCIUM 9.5 mg/dl (8.6-10.4)
[2018-01-06 17:57] VITALS: BP 145/105; PULSE 105
== END 2018-01-06 18:11 | disposition home or self-care (01) ==
LOC: C.ER 14:31
DX: R33.9 Retention of urine, unspecified (principal); I10 Essential (primary) hypertension; Z87.891 Personal history of nicotine dependence

== ENCOUNTER 2018-07-07 11:11 | Emergency (ER) | payer MEDICARE ==
[2018-07-07 11:18] VITALS: BP 116/82; PULSE 114; RESP 18; TEMP 99.1; O2SAT 95
[2018-07-07 12:15] LABS: URINE BACTERIA OCC (<OCC); URINE BILIRUBIN NEGATIVE (NEGATIVE); URINE BLOOD 1+ (NEGATIVE); URINE CLARITY Clear (Clear); URINE COLOR Straw (YELLOW); URINE GLUCOSE (UA) NORMAL (Normal); URINE LEUKOCYTE ESTERASE 2+ Leu/uL (Negative); URINE PROTEIN NEGATIVE (NEGATIVE); URINE UROBILINOGEN NORMAL mg/dL (0.2-1.0)
--- NOTE | 2018-07-07 12:18 | C.PDOC ---
History Of Present Illness 68 year old male patient presents to the ER with c/o inability to urinate. Patient reports it started last night associated with constipation, but no pain. Patient denies nausea, vomiting, chest pain and SOB. Time Seen by Provider: 07/07/18 11:44 Chief Complaint (Nursing): Male Genitourinary History Per: Patient History/Exam Limitations: no limitations Onset/Duration Of Symptoms: Hrs Current Symptoms Are (Timing): Still Present Associated Symptoms: Constipation (no pain). denies: Nausea, Vomiting, Chest Pain, Other (SOB) Past Medical History Reviewed: Historical Data, Nursing Documentation, Vital Signs Vital Signs: Last Vital Signs Temp 99.1 F 07/07/18 11:17 Pulse 114 H 07/07/18 11:17 Resp 18 07/07/18 11:17 BP 116/82 07/07/18 11:17 Pulse Ox 95 07/07/18 12:35 - Medical History PMH: Anemia, Anxiety, Colonic Polyps, HTN, Hypercholesterolemia - [facility] Procedures REMOVAL OF INTRALUM DEV FROM URETER, PERC ENDO APPROACH (11/04/17) RESECTION OF PROSTATE, ENDO (11/04/17) Family History: States: No Known Family Hx - Social History Hx Alcohol Use: No Hx Substance Use: No - Immunization History Hx Tetanus Toxoid Vaccination: Yes Hx Influenza Vaccination: Yes Hx Pneumococcal Vaccination: Yes Review Of Systems Except As Marked, All Systems Reviewed And Found Negative. Genitourinary: Positive for: Other (urinary retention) Physical Exam - Physical Exam Appears: Non-toxic, No Acute Distress Skin: Normal Color, Warm, Dry Head: Atraumatic, Normacephalic Eye(s): bilateral: Normal Inspection, PERRL, EOMI Nose: Normal Oral Mucosa: Moist Chest: Symmetrical Cardiovascular: Rhythm Regular, No Murmur Respiratory: Normal Breath Sounds, No Rales, No Rhonchi, No Wheezing Gastrointestinal/Abdominal: Normal Exam, Soft, No Tenderness Male Genital: No Testicular Tenderness, Testicular Swelling, Circumcised Extremity: Normal ROM (x4) Extremity: Bilateral: Atraumatic, Normal Color And Temperature Neurological/Psych: Oriented x3, Normal Speech ED Course And Treatment O2 Sat by Pulse Oximetry: 95 (RA) Pulse Ox Interpretation: Normal - Other Rad Abdominal obstructive series X-Ray: Read By Radiologist Interpretation: Accession No. : [id number]. Patient Name / ID : CORBIN HOLDEN / [id number]. Exam Date : 07/07/2018 12:11:39 ( Approved ). Study Comment : Sex / Age : M / 68Y. Creator : Mervat Stewart MD. Dictator : Mervat Stewart MD. Platform Beater : Land Conservation Specialist : Mervat Stewart MD. Approver2 : Report Date : 07/07/2018 12:20:55. My Comment : . Date of service: 07/07/2018. PROCEDURE: Radiographs of the chest and abdomen ( obstructive series). HISTORY: Constipation. COMPARISON: No prior. TECHNIQUE : AP radiograph of the chest, with upright and supine radiographs of the abdomen. FINDINGS: CHEST: Lungs: The lungs are well inflated and clear. . Cardiovascular: Normal size heart. No pulmonary vascular congestion. Pleura: No pleural fluid. No pneumothorax. Other findings: None. ABDOMEN AND PELVIS: Bowel: There is large amount of stool in the colon and rectum. No evidence of mechanical obstruction. Free air: None. Bones: Unremarkable. Other findings : None. IMPRESSION: Constipation. Nonobstructive bowel gas pattern. Clear lungs. Medical Decision Making Medical Decision Making: Impression: Urinary retention Plan: -- Obstructive series -- Cipro 500mg -- UCx -- UA Reassess: Patient is resting comfortably. Tolerating PO. Patient is advised to f /u with Dr. Karoline Cifuentes in 1-2 days. obst. series - nsgp, constipation fontanez placed and patient diuresed will discharge home with leg bag and follow up with Dr. Karoline Cifuentes repeat hr - 92 bpm Disposition Counseled Patient/Family Regarding: Studies Performed, Diagnosis, Need For Followup, Rx Given - Disposition Referrals: Maria Ines Cifuentes MD [Staff Provider] - Disposition: HOME/ ROUTINE Disposition Time: 12:32 Condition: STABLE Additional Instructions: follow up with Dr. Cifuentes within 2 days call to make an appointment take medications as prescribed return to hospital if symptoms worsens or progress Prescriptions: Ciprofloxacin HCl [Cipro] 500 mg PO BID #14 tab Polyethylene Glycol 3350 [Miralax] 17 g PO DAILY PRN #10 packet PRN Reason: Constipation Instructions: Constipation, Adult (DC), Urinary Retention (DC) Forms: [facility] (Swedish), General Discharge Instructions - Clinical Impression Clinical Impression: Constipation, Urinary retention - Scribe Statement The provider has reviewed the documentation as recorded by the Indio Cruz Do Provider Attestation: All medical record entries made by the Deanneibotto were at my direction and personally dictated by me. I have reviewed the chart and agree that the record accurately reflects my personal performance of the history, physical exam, medical decision making, and the department course for this patient. I have also personally directed, reviewed, and agree with the discharge instructions and disposition.
--- NOTE | 2018-07-07 12:22 | RAD ---
Date of service: 07/07/2018 PROCEDURE: Radiographs of the chest and abdomen (obstructive series) HISTORY: Constipation COMPARISON: No prior. TECHNIQUE: AP radiograph of the chest, with upright and supine radiographs of the abdomen. FINDINGS: CHEST: Lungs: The lungs are well inflated and clear. . Cardiovascular: Normal size heart. No pulmonary vascular congestion. Pleura: No pleural fluid. No pneumothorax. Other findings: None. ABDOMEN AND PELVIS: Bowel: There is large amount of stool in the colon and rectum. No evidence of mechanical obstruction. Free air: None. Bones: Unremarkable. Other findings: None. IMPRESSION: Constipation. Nonobstructive bowel gas pattern. Clear lungs.
== END 2018-07-07 12:44 | disposition home or self-care (01) ==
LOC: C.ER 11:11
DX: R33.9 Retention of urine, unspecified (principal); K59.00 Constipation, unspecified; I10 Essential (primary) hypertension; E78.00 Pure hypercholesterolemia, unspecified

== ENCOUNTER 2018-07-11 13:34 | Emergency (ER) | payer MEDICARE ==
[2018-07-11 13:58] VITALS: BMI 22.3
[2018-07-11 14:01] VITALS: BP 136/97; PULSE 100; RESP 16; TEMP 98.9; O2SAT 97
--- NOTE | 2018-07-11 14:28 | C.PDOC ---
History Of Present Illness 68-year-old male, PMHx includes BPH, presents to the emergency department for evaluation of his urinary catheter. Patient had it placed in ED on 07/07 for urinary retention, and has not had any problems with it. He emptied it last night, but when he woke up this morning, there was no urine in the bag but does not that his shorts were wet. He did not have any pressure or feel as though he had to urinate. Shortly after, he did notice the urine come into the bag without leaking. He denies any hematuria, nausea/vomiting, fever, back pain or any other associated symptoms. Pt pending an appointment with Dr Cifuentes in four days. Time Seen by Provider: 07/11/18 14:06 Chief Complaint (Nursing): Male Genitourinary History Per: Patient History/Exam Limitations: no limitations Past Medical History Reviewed: Historical Data, Nursing Documentation, Vital Signs Vital Signs: Last Vital Signs Temp 98.9 F 07/11/18 13:58 Pulse 100 H 07/11/18 13:58 Resp 16 07/11/18 13:58 BP 136/97 H 07/11/18 13:58 Pulse Ox 97 07/11/18 15:31 - Medical History PMH: Anemia, Anxiety, Colonic Polyps, HTN, Hypercholesterolemia Denies: Chronic Kidney Disease - [facility] Procedures REMOVAL OF INTRALUM DEV FROM URETER, PERC ENDO APPROACH (11/04/17) RESECTION OF PROSTATE, ENDO (11/04/17) Family History: States: No Known Family Hx - Social History Hx Alcohol Use: No Hx Substance Use: No - Immunization History Hx Tetanus Toxoid Vaccination: Yes Hx Influenza Vaccination: Yes Hx Pneumococcal Vaccination: Yes Review Of Systems Constitutional: Negative for: Fever Gastrointestinal: Negative for: Nausea, Vomiting Genitourinary: Negative for: Hematuria, Penile Discharge, Scrotal Pain Skin: Negative for: Rash Physical Exam - Physical Exam Appears: Non-toxic, No Acute Distress, Other (anxious) Skin: Normal Color, Warm, Dry, No Rash Head: Atraumatic, Normacephalic Eye(s): bilateral: Normal Inspection, EOMI Nose: Normal Oral Mucosa: Moist Lips: Normal Appearing Neck: Normal ROM, Supple Chest: Symmetrical Respiratory: No Accessory Muscle Use, Other (no apparent respiratory distress) Gastrointestinal/Abdominal: Soft, No Tenderness Male Genital: Other (urinary catherter and leg bag in place with urine in bag, no leaking. ) Extremity: Normal ROM, No Deformity Neurological/Psych: Oriented x3, Normal Speech ED Course And Treatment O2 Sat by Pulse Oximetry: 97 Pulse Ox Interpretation: Normal (RA) Progress Note: Leg bag changed per pts request. Instructed to follow up with urology as scheduled. Disposition - Disposition Referrals: Maria Ines Cifuentes MD [Staff Provider] - Disposition: HOME/ ROUTINE Disposition Time: 14:27 Condition: STABLE Additional Instructions: Follow up with the urologist in 1-2 days. Return to ER if symptoms persist or worsen. Instructions: Urinary Retention (DC) Forms: [facility] (Vietnamese) - Clinical Impression Clinical Impression: Urinary retention - Scribe Statement The provider has reviewed the documentation as recorded by the Scribe (Zak Dominique) All medical record entries made by the Scribe were at my direction and personally dictated by me. I have reviewed the chart and agree that the record accurately reflects my personal performance of the history, physical exam, medical decision making, and the department course for this patient. I have also personally directed, reviewed, and agree with the discharge instructions and disposition.
== END 2018-07-11 14:56 | disposition home or self-care (01) ==
LOC: C.ER 13:34
DX: N40.1 Benign prostatic hyperplasia with lower urinary tract symptoms (principal); R33.8 Other retention of urine; E78.00 Pure hypercholesterolemia, unspecified; I10 Essential (primary) hypertension

== ENCOUNTER 2018-12-06 14:44 | Emergency (ER) | payer MEDICARE ==
[2018-12-06 14:44] VITALS: BMI 22.3
--- NOTE | 2018-12-06 17:21 | C.PDOC ---
History Of Present Illness 68 y/o male with PMH of urinary retention, BPH (s/p TURP), hypertension, presents c/o urinary retention x 1 day. Pt had fontanez catheter with leg bag removed by urologist Dr. Cifuentes on 12/02/18 and had no difficulties until this morning when patient was unable to urinate except for a few drops. C/o lower abdominal discomfort and distention along with left sided testicular pain. Of note, patient is currently taking Amoxicillin for "pus in the catheter" when it was removed. Denies fever, chills, N/V, back pain, dysuria, hematuria, testicular swelling, penile discharge, chest pain, SOB, or any other associated complaints. Time Seen by Provider: 12/06/18 16:45 Chief Complaint (Nursing): Male Genitourinary History Per: Patient History/Exam Limitations: no limitations Past Medical History Reviewed: Historical Data, Nursing Documentation, Vital Signs Vital Signs: Last Vital Signs Temp 97.8 F 12/06/18 14:59 Pulse 95 H 12/06/18 14:59 Resp 18 12/06/18 14:59 BP 119/86 12/06/18 14:59 Pulse Ox 95 12/06/18 14:59 - Medical History PMH: Anemia, Anxiety, Colonic Polyps, HTN, Hypercholesterolemia Denies: Chronic Kidney Disease - [facility] Procedures REMOVAL OF INTRALUM DEV FROM URETER, PERC ENDO APPROACH (11/04/17) RESECTION OF PROSTATE, ENDO (11/04/17) Family History: States: No Known Family Hx - Social History Hx Alcohol Use: No Hx Substance Use: No - Immunization History Hx Tetanus Toxoid Vaccination: No Hx Influenza Vaccination: Yes Hx Pneumococcal Vaccination: Yes Review Of Systems Except As Marked, All Systems Reviewed And Found Negative. Constitutional: Negative for: Fever, Chills, Malaise Eyes: Negative for: Vision Change ENT: Negative for: Nose Congestion Cardiovascular: Negative for: Chest Pain, Palpitations, Light Headedness Respiratory: Negative for: Cough, Shortness of Breath Gastrointestinal: Positive for: Other (lower abdominal distention and discomfort). Negative for: Nausea, Vomiting, Diarrhea, Melena Genitourinary: Positive for: Other (urinary retention). Negative for: Dysuria, Frequency, Incontinence, Hematuria Musculoskeletal: Negative for: Back Pain Skin: Negative for: Rash Neurological: Negative for: Weakness, Numbness, Headache, Dizziness Physical Exam - Physical Exam Appears: Well, No Acute Distress Skin: Normal Color, Warm, Dry Head: Atraumatic, Normacephalic, No Tenderness Eye(s): bilateral: Normal Inspection, PERRL, EOMI Nose: Normal Oral Mucosa: Moist Throat: Normal Neck: Normal, Normal ROM Cardiovascular: Rhythm Regular Respiratory: Normal Breath Sounds Gastrointestinal/Abdominal: Normal Exam Back: Normal Inspection, No CVA Tenderness Male Genital: Normal Inspection, Testicular Tenderness (left), No Testicular Swelling, No Inguinal Tenderness, No Inguinal Swelling, No Scrotal Swelling, Circumcised Extremity: Normal ROM, Capillary Refill (<2s) Extremity: Bilateral: Atraumatic, No Pedal Edema, Normal Color And Temperature, Normal ROM Pulses: Left Radial: Normal, Right Radial: Normal Neurological/Psych: Oriented x3, Normal Speech, Normal Cognition, Normal Motor, Normal Sensation Gait: Steady ED Course And Treatment - Laboratory Results Result Diagrams: 12/06/18 18:39 12/06/18 18:39 Lab Interpretation: Normal O2 Sat by Pulse Oximetry: 95 - Other Rad Testes Duplex X-Ray: Read By Radiologist Interpretation: FINDINGS: RIGHT TESTICLE: Measures 1.7 x 2.2 x 4.2 cm. Normal echotexture and flow. RIGHT EPIDIDYMIS: Epididymal head measures 0.6 x 0.9 x 1.3 cm. Grossly unremarkable appearance with normal flow. LEFT TESTICLE: Me asures 1.4 x 2.2 x 3.8 cm. Normal echotexture and flow. LEFT EPIDIDYMIS: Epididymal head measures 0.4 x 1.0 x 1.1 cm. Grossly unremarkable appearance with normal flow. HYDROCELE: None. VARICOCELE: None. OTHER FINDINGS: None. IMPRESSION: No significant or acute findings to account for/ related to the clinical presentation. - Physician Consult Information Time Consulting Physician Contacted: 19:00 Physician Contacted: David Cifuentes Outcome Of Conversation: Recommends discharge home with fontanez bag and antibiotic, pt to call him to set up appointment. Medical Decision Making Medical Decision Making: Initial Plan: * CBC, CMP * UA, culture * Fontanez * Testicular US Bloodwork unremarkable Urinalysis remarkable for Leuk Esterase, Blood, WBC, RBC [address] David Cifuentes and discussed diagnostic testing results in depth. He advises that patient can followup outpatient. Recommends Levaquin 750mg PO daily for a week for presumed epididymitis. 193 Patient's primary doctor saw patient in Emergency department, agrees with plan to discharge home per Dr. Cifuentes, but recommends Keflex 500mg instead of Levaquin secondary to possible interaction with patient's psychiatric medications. 1999 Dr. Cifuentes made aware of the primary doctor's recommendation and agrees with plan of care. States patient should call him at the provided number as soon as possible to arrange followup. Patient reports complete resolution of abdominal pain/discomfort with insertion of fontanez catheter. Abdomen is soft, non-distended, non-tender. Will discharge home with leg bag and instructions for followup in addition to keflex prescription. Diagnostic testing results and plan of care discussed with patient. Strict instructions given regarding prescription use, importance of followup, and signs/symptoms to return to ER including abdominal pain, N/V, problems with fontanez, or any other new/worsening symptoms. Pt verbalized understanding of discussion. Patient is A&Ox3, ambulating with steady gait, with vital signs stable for discharge. Disposition - Disposition Referrals: David Cifuentes MD [Staff Provider] - Disposition: HOME/ ROUTINE Disposition Time: 19:00 Condition: IMPROVED Additional Instructions: Call Dr. Cifuentes at [phone] to schedule an appointment Take keflex every 8 hours for 7 days stop amoxicillin Followup with [facility] doctor within 2 days Return to ER with any new/worsening symptoms Prescriptions: Cephalexin [Keflex] 500 mg PO Q8H 7 Days #21 capsule Instructions: Urinary Retention Forms: [facility] (Pashto), Work Excuse - Clinical Impression Clinical Impression: Urinary retention, UTI (urinary tract infection)
[2018-12-06 17:56] LABS: URINE BACTERIA MOD (<OCC); URINE BILIRUBIN NEGATIVE (NEGATIVE); URINE BLOOD 1+ (NEGATIVE); URINE COLOR Amber (YELLOW); URINE GLUCOSE (UA) NORMAL (Normal); URINE LEUKOCYTE ESTERASE 3+ Leu/uL (Negative); URINE PROTEIN 1+ mg/dL (NEGATIVE); URINE UROBILINOGEN NORMAL mg/dL (0.2-1.0); WBC CLUMPS MANY /hpf
[2018-12-06 17:57] LABS: URINE CLARITY SLIGHT-CLOUDY (Clear)
--- NOTE | 2018-12-06 18:21 | US ---
Date of service: 12/06/2018 HISTORY: testicular pain TECHNIQUE: Realtime sonography through the scrotum with color and doppler flow. COMPARISON: None Available. FINDINGS: RIGHT TESTICLE: Measures 1.7 x 2.2 x 4.2 cm. Normal echotexture and flow. RIGHT EPIDIDYMIS: Epididymal head measures 0.6 x 0.9 x 1.3 cm. Grossly unremarkable appearance with normal flow. LEFT TESTICLE: Measures 1.4 x 2.2 x 3.8 cm. Normal echotexture and flow. LEFT EPIDIDYMIS: Epididymal head measures 0.4 x 1.0 x 1.1 cm. Grossly unremarkable appearance with normal flow. HYDROCELE: None. VARICOCELE: None. OTHER FINDINGS: None. IMPRESSION: No significant or acute findings to account for/ related to the clinical presentation.
[2018-12-06 18:45] LABS: BASO # 0.1 K/uL (0.0-0.2); BASO % 2.1 % (0.0-2.0); EOS # 0.1 K/uL (0.0-0.7); EOS % 1.9 % (0.0-4.0); HEMOGLOBIN 13.7 g/dL (12.0-18.0); LYMPH # 1.5 K/uL (1.0-4.3); LYMPH % 22.1 % (20.0-40.0); MEAN CORPUSCULAR HEMOGLOBIN 28.2 pg (27.0-31.0); MEAN CORPUSCULAR HGB CONC 33.3 g/dL (33.0-37.0); MEAN PLATELET VOLUME 8.8 fL (7.2-11.7); MONO # 0.3 K/uL (0.0-0.8); MONO % 5.2 % (0.0-10.0); NEUT # 4.6 K/uL (1.8-7.0); NEUT % 68.7 % (50.0-75.0); RBC 4.85 Mil/uL (4.40-5.90); WHITE BLOOD COUNT 6.7 K/uL (4.8-10.8)
[2018-12-06 18:46] LABS: MEAN CELL VOLUME 84.7 fL (80.0-94.0)
[2018-12-06 19:09] LABS: ALB/GLOB RATIO 1.3 (1.0-2.1); ALBUMIN 4.1 g/dL (3.5-5.0); ALT/SGPT 53 U/L (21-72); AST/SGOT 33 U/L (17-59); BLOOD UREA NITROGEN 18 mg/dL (9-20); CALCIUM 8.5 mg/dl (8.6-10.4); GFR NON-AFRICAN AMERICAN 50
[2018-12-06 20:44] VITALS: BP 145/95; PULSE 81; RESP 20; TEMP 98.4
[2018-12-07 09:12] VITALS: O2SAT 95
== END 2018-12-06 20:46 | disposition home or self-care (01) ==
LOC: C.ER 14:44
DX: R33.9 Retention of urine, unspecified (principal); N39.0 Urinary tract infection, site not specified

== ENCOUNTER 2018-12-20 11:07 | Outpatient (CLI) | payer MEDICARE | END 2018-12-20 11:08 | disposition home or self-care (01) | LOC: C.PAT 11:07 | DX: R33.9 Retention of urine, unspecified (principal) ==

== ENCOUNTER 2018-12-24 07:16 | Day surgery (SDC) | payer MEDICARE ==
[2018-12-20 11:26] VITALS: BMI 23.0
[2018-12-24] MEDS ORDERED: cefTRIAXone 1 gm 1 GM/100 ML BAG IVPB ONE (08:51)
[2018-12-24] MEDS ORDERED: Iohexol 240 (50 ml) ONE (08:51)
[2018-12-24] MEDS ORDERED: Lidocaine 2% Jelly (Uro-Jet) ONE (08:52)
[2018-12-24] MEDS ORDERED: Iodixanol 320 MG/ML 200 ML BOTTLE IV ONE (08:59)
[2018-12-24] MEDS ORDERED: Propofol 10 mg/ml Inj (20 ML) ONE (09:01)
[2018-12-24] MEDS ORDERED: Midazolam 2 MG/2 ML VIAL ONE (09:01)
[2018-12-24] MEDS ORDERED: HYDROmorphone 0.5 mg/0.5 ml ISec IVP PRN (09:47)
--- NOTE | 2018-12-24 09:56 | PCM.SURG1 ---
Surgeon's Initial Post Op Note - Surgeon's Notes Surgeon: Licha Cifuentes Hospitalist: none Type of Anesthesia: IV Sedation Pre-Operative Diagnosis: urinary retention Operative Findings: same. cystitis. Mild bph. urethral polyp Post-Operative Diagnosis: same Operation Performed: cystogram. modified cystometrogram. cystoscopy. urethral bx and fulg. EUA Specimen/Specimens Removed: urine. urethral polyp Estimated Blood Loss: EBL {In ML}: 0 Blood Products Given: N/A Date of Surgery/Procedure: 12/24/18 Time of Surgery/Procedure: 09:45
[2018-12-24 10:32] VITALS: TEMP 97
[2018-12-24 10:57] VITALS: PULSE 79; RESP 16
[2018-12-24 12:05] VITALS: O2SAT 98
[2018-12-24 12:10] VITALS: BP 150/69
--- NOTE | 2018-12-24 13:50 | RAD ---
Date of service: 12/24/2018 HISTORY: URINARY RETENTION COMPARISON: Abdomen obstructive series 07/07/2018. FINDINGS: BOWEL: There is a nonobstructive bowel gas pattern, which is nearly identical in the interval. [id number] amount retained fecal material scattered throughout various large-bowel segments. No free intra peritoneal gas collection identified. No suspicious intra-abdominal calcifications are encountered. Small phlebolith like calcifications are stable at the inferior pelvis soft tissues. The bilateral psoas margins are sharp. The right renal silhouette is unremarkable. Left renal silhouette is obscured by bowel. No overt pattern of urinary bladder distension though CT is more sensitive. 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 OTHER FINDINGS: None. IMPRESSION: Nonobstructive bowel gas pattern. Unremarkable right renal silhouette. Left renal silhouette is obscured by bowel. No definite intra-abdominal suspicious calcifications.
--- NOTE | 2018-12-24 17:00 | RAD ---
Date of service: 12/24/2018 PROCEDURE: Intraoperative Fluoroscopy. HISTORY: URINARY RETENTION FINDINGS: Fluoroscopic assistance was provided for cystography. Total fluoroscopic time (continuous mode) utilized during the procedure 6.6 seconds. Dose report: DLP [id number] (mGy/m2) Please refer to the operative report from Dr. ROMERO, [place].
--- NOTE | 2018-12-28 20:10 | OP ---
PROCEDURE DATE: 12/24/2018 PREOPERATIVE DIAGNOSIS: Urinary retention. POSTOPERATIVE DIAGNOSES: Urinary retention. Hyporeflexic bladder. Benign prostatic hypertrophy. Prostatitis. PROCEDURES: Cystometrogram. Cystogram. Cystoscopy. Prostatic urethral biopsy and fulguration. Exam under anesthesia. OPERATING SURGEON: Maria Ines Cifuentes MD DESCRIPTION OF PROCEDURE: The patient received perioperative antibiotics. The patient was placed in the supine position. The Dumont catheter was already in place. Urine was sent for bacteriologic examination. Iodinated contrast dye was instilled. Under fluoroscopic control, the cystogram was performed.. The PA and oblique views were obtained. Cystogram demonstrated mild bladder trabeculation. There was no intrinsic or extrinsic filling defect within the bladder. There was no vesicoureteral reflux. There was mild elevation of the bladder base. The cystometrogram was performed as simple cystometry with manometry. The bladder was filled in increments of 30 mL. The bladder pressure was monitored. The patient felt the first bladder sensation at a volume of 60 mL. The patient felt an urge to void a volume of 150 mL. There was no detrusor contraction. The bladder filling was continued up to a volume of 250 mL. The bladder pressure remained flat. The bladder was then drained. The patient was placed in lithotomy position. Genitalia were prepped and draped sterilely. Anesthesia was applied by the anesthesiologist. A 22-[place] cystoscope sheath was introduced under direct vision. Urethra, prostate and bladder were inspected with 30-degree and 70-degree lenses. FINDINGS. There was no stricture in the anterior urethra. There was a papillary smooth polyp noted in the bulbar urethra. This was subsequently biopsied. Fulguration was performed with Ball electrode and electrocautery. The prostatic urethra was nonocclusive. There was evidence of previous resection. The prostatic urethra was 3 cm in length. There was no bladder neck contracture. There was no bladder tumor or stone. The bladder was reinspected with 70-degree lens and confirmed the above findings. The bladder was then drained induration or nodularity. The patient tolerated the procedure without complication . Maria Ines Cifuentes MD
== END 2018-12-24 12:22 | disposition home or self-care (01) ==
LOC: C.SDS 07:16
PROVIDERS: ATTEND Urology
DX: N36.2 Urethral caruncle (principal); N30.90 Cystitis, unspecified without hematuria; R33.8 Other retention of urine; N40.1 Benign prostatic hyperplasia with lower urinary tract symptoms; N41.9 Inflammatory disease of prostate, unspecified; I10 Essential (primary) hypertension; E78.5 Hyperlipidemia, unspecified
CPT/HCPCS: 52204; 74018; 87086; 87181; 88305; J0696; J1170; Q9966

== ENCOUNTER 2018-12-25 13:24 | Emergency (ER) | payer MEDICARE ==
[2018-12-25 13:24] VITALS: BMI 23.0
--- NOTE | 2018-12-25 13:52 | C.PDOC ---
History Of Present Illness 68 y/o male pt presents to the ER c/o urinary frequency x1 day. Pt reports he had a cystoscopy yesterday by Dr. Maria Ines Cifuentes. Pt was advised to straight catheterize himself every 6 hours, but keeps on urinating frequently. Pt denies dysuria, abdominal pain, fever and chills. Time Seen by Provider: 12/25/18 13:48 Chief Complaint (Nursing): Male Genitourinary History Per: Patient History/Exam Limitations: no limitations Onset/Duration Of Symptoms: Days (x1) Current Symptoms Are (Timing): Still Present Past Medical History Reviewed: Historical Data, Nursing Documentation, Vital Signs Vital Signs: Last Vital Signs Temp 98.1 F 12/25/18 13:40 Pulse 114 H 12/25/18 13:40 Resp 18 12/25/18 13:40 BP 135/98 H 12/25/18 13:40 Pulse Ox 96 12/25/18 13:40 - Medical History PMH: Anemia, Anxiety, Colonic Polyps, HTN, Hypercholesterolemia - [facility] Procedures REMOVAL OF INTRALUM DEV FROM URETER, PERC ENDO APPROACH (11/04/17) RESECTION OF PROSTATE, ENDO (11/04/17) Family History: States: No Known Family Hx - Social History Hx Alcohol Use: No Hx Substance Use: No - Immunization History Hx Tetanus Toxoid Vaccination: No Hx Influenza Vaccination: Yes Hx Pneumococcal Vaccination: Yes Review Of Systems Except As Marked, All Systems Reviewed And Found Negative. Constitutional: Negative for: Fever, Chills Gastrointestinal: Negative for: Abdominal Pain Genitourinary: Positive for: Frequency. Negative for: Dysuria Physical Exam - Physical Exam Appears: Non-toxic, Other (anxious ) Skin: Warm, Dry Head: Normacephalic Eye(s): bilateral: Normal Inspection, EOMI Cardiovascular: Rhythm Regular Respiratory: Normal Breath Sounds Gastrointestinal/Abdominal: Soft, No Tenderness Extremity: Normal ROM (x4) Neurological/Psych: Oriented x3, Normal Speech, Normal Cognition ED Course And Treatment O2 Sat by Pulse Oximetry: 96 (RA) Pulse Ox Interpretation: Normal Progress Note: Plans: -- glucose POC. -- Urine Cx. -- UA. Finger stick results: 99. Case will be discussed with Dr. Maria Ines Cifuentes. was paged at 15:55. Spoke with , he requested to put Dumont abnd d/c patient home, he will see patient in his office next week. Disposition - Disposition Referrals: Maria Ines Cifuentes MD [Staff Provider] - Disposition: HOME/ ROUTINE Disposition Time: 16:56 Condition: STABLE Additional Instructions: Follow up with within 2-3 days. Return to ED if feel worse. Instructions: Urinary Retention (DC) Forms: [employer] (Citizen [place]) - Clinical Impression Clinical Impression: Urinary retention - PA / PROCESS CONTROLLER / Resident Statement / has reviewed & agrees with the documentation as recorded. - Scribe Statement The provider has reviewed the documentation as recorded by the Indio Cruz Do All medical record entries made by the Deanneibe were at my direction and personally dictated by me. I have reviewed the chart and agree that the record accurately reflects my personal performance of the history, physical exam, medical decision making, and the department course for this patient. I have also personally directed, reviewed, and agree with the discharge instructions and disposition.
[2018-12-25 15:42] LABS: URINE BILIRUBIN NEGATIVE (NEGATIVE); URINE BLOOD NEGATIVE (NEGATIVE); URINE CLARITY Clear (Clear); URINE COLOR Straw (YELLOW); URINE GLUCOSE (UA) NORMAL (Normal); URINE LEUKOCYTE ESTERASE NEG Leu/uL (Negative); URINE PROTEIN NEGATIVE (NEGATIVE); URINE UROBILINOGEN NORMAL mg/dL (0.2-1.0)
[2018-12-25 16:09] VITALS: BP 147/100; PULSE 98; RESP 20; TEMP 98
[2018-12-25 16:59] VITALS: O2SAT 96
== END 2018-12-25 17:30 | disposition home or self-care (01) ==
LOC: C.ER 13:24
DX: R33.9 Retention of urine, unspecified (principal)